=== PATIENT | female | born 1940 | race Caucasian/White ===

== ENCOUNTER → 2016-04-25 | Outpatient (CLI) | payer OTHER ==
[~2016-04-25] MED LIST: ACET-1256 PO; ACET-1311 PO; AMIO200T4 PO; AMLO5TAB4 PO; ASCA500 PO; ATOR-24 PO; CALC-354 PO; CARV12.52 PO; CHOL100010 PO; COEN1CAP17 PO; COEN1CAP37 PO; LEVO50TA PO; LOSA100T2 PO; LOSA100T65 PO; LSX40 PO; MISCTAB78 PO; MULT-506 PO; OXYC1TAB3 PO; PANT40TA PO; PILO4SOL OPR; PILOCARPINE HCL4 % OPR; POTA1080 PO; POTATAB2 PO; RABE1TAB2 PO; RABE20TA5 PO; SENN-65 PO; WARF2TAB8 PO; WARF4TAB43 PO
[2016-04-25 15:40] LABS: URINE APPEARANCE CLEAR (CLEAR); URINE BILIRUBIN NEG (NEG); URINE COLOR YELLOW; URINE EPITHELIAL CELL AUTO 20-30 /lpf (0-5); URINE NITRITE NEG (NEG); URINE SPECIFIC GRAVITY 1.016 (1.000-1.030); UROBILINOGEN NEG (NEG); ZZUR CULT IF INDIC CLEAN CATCH NO
[2016-04-25 16:05] LABS: MANUAL MICROSCOPIC REQUIRED? NO; REVIEW REQ? NO
== END | disposition home or self-care (01) ==
LOC: C.LAB1850 13:20
PROVIDERS: ATTEND Internal Medicine Nephrology
DX: N28.9 Disorder of kidney and ureter, unspecified (principal)

== ENCOUNTER → 2016-05-02 | Outpatient (CLI) | payer OTHER ==
[~2016-05-02] VITALS: Ht 167.6 cm; Wt 114.9 kg
[2016-05-02 13:07] VITALS: BP 126/80; PULSE 65; Ht 167.6 cm; Wt 114.9 kg
== END | disposition home or self-care (01) ==
LOC: C.NEUR 12:15
PROVIDERS: ATTEND Internal Medicine Pulmonary Disease
DX: G47.33 Obstructive sleep apnea (adult) (pediatric) (principal); I48.91 Unspecified atrial fibrillation

== ENCOUNTER → 2016-06-04 | Outpatient (CLI) | payer OTHER ==
[~2016-06-04] MED LIST changes: -ASCA500 PO; -CHOL100010 PO; -RABE1TAB2 PO
[2016-06-04 13:47] LABS: BLOOD UREA NITROGEN 29 mg/dl (7-18); BUN/CREATININE RATIO 19.1 (10-20); CALCIUM 9.1 mg/dl (8.5-10.1); CARBON DIOXIDE 27 mmol/L (21-32); CHLORIDE 102 mmol/L (98-107); GLUCOSE 101 mg/dl (70-99); PHOSPHORUS 3.2 mg/dl (2.5-4.9); POTASSIUM 3.6 mmol/L (3.5-5.1); SODIUM 138 mmol/L (136-145)
== END | disposition home or self-care (01) ==
LOC: C.LAB 12:02
PROVIDERS: ATTEND Internal Medicine Nephrology
DX: N28.9 Disorder of kidney and ureter, unspecified (principal); Z51.81 Encounter for therapeutic drug level monitoring; Z79.01 Long term (current) use of anticoagulants; I48.91 Unspecified atrial fibrillation

== ENCOUNTER → 2016-07-01 | Outpatient (CLI) | payer OTHER ==
[~2016-07-01] MED LIST changes: -CALC-354 PO; -PANT40TA PO
[2016-07-01 09:51] LABS: ALT/SGPT 29 U/L (12-78); BLOOD UREA NITROGEN 31 mg/dl (7-18); BUN/CREATININE RATIO 21.9 (10-20); CALCIUM 9.5 mg/dl (8.5-10.1); CARBON DIOXIDE 29 mmol/L (21-32); CHLORIDE 109 mmol/L (98-107); GLUCOSE 112 mg/dl (70-99); POTASSIUM 4.4 mmol/L (3.5-5.1); SODIUM 146 mmol/L (136-145)
[2016-07-01 09:53] LABS: ALKALINE PHOSPHATASE 57 U/L (45-117); AST/SGOT 21 U/L (15-37)
== END | disposition home or self-care (01) ==
LOC: C.LAB 07:39
PROVIDERS: ATTEND Urology
DX: C64.9 Malignant neoplasm of unspecified kidney, except renal pelvis (principal); N28.89 Other specified disorders of kidney and ureter

== ENCOUNTER → 2016-07-09 | Outpatient (CLI) | payer OTHER ==
[~2016-07-09] MED LIST changes: +OPTIRAY 320 IV PRN; -POTA1080 PO
--- NOTE | 2016-07-09 11:14 | DIAGNOSTIC IMAGING REPORT ---
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 FINDINGS: No pleural effusions. No pneumothorax. The heart is stable in size. Large hiatus hernia is again noted. The left lung is clear. Linear densities the base of the right lower lobe favor subsegmental atelectasis. IMPRESSION: 1. Large hiatus hernia, unchanged. 2. Linear densities at the base the right lower lobe which favor subsegmental atelectasis. A pneumonia could also a similar appearance. This will be better characterized on the same day abdomen and pelvis CT. Electronically signed by: Jake Bagley M.D. 07/09/2016 11:13 AM Dictated Date/Time: 07/09/2016 11:11 AM
--- NOTE | 2016-07-09 11:47 | DIAGNOSTIC IMAGING REPORT ---
CT OF THE ABDOMEN AND PELVIS WITH CONTRAST CLINICAL HISTORY: Renal cell carcinoma. COMPARISON STUDY: CT of the abdomen and pelvis January 10, 2016. TECHNIQUE: Following IV administration of 70 mL of Optiray-320, axial images of the abdomen and pelvis were obtained from the lung bases to the proximal femurs. Images were reviewed in the axial, sagittal, and coronal planes. IV contrast was administered without complication. CT DOSE: 1588.84 mGy.cm FINDINGS: Visualized portions of the lower chest demonstrate a large hiatal hernia with partially intrathoracic stomach. The liver, spleen, left adrenal gland and pancreas are unremarkable. A 1.7 cm right adrenal nodule is unchanged since prior exam. This likely reflects an adenoma. There are expected findings following right nephrectomy. There are no abnormalities within the right nephrectomy bed to suggest a local tumor recurrence. No enlarged abdominal or pelvic lymph nodes are present. There is no evidence for a bowel obstruction. There is colonic diverticulosis without evidence for acute diverticulitis. Multiple small left renal calculi measure up to 4 mm. There are no ureteral calculi. There is no hydronephrosis. There are left-sided parapelvic cyst. No suspicious osseous lesions are present. IMPRESSION: 1. No evidence of tumor recurrence following right nephrectomy. 2. Stable 1.7 cm right adrenal nodule suggestive of an adenoma. 3. Left-sided nephrolithiasis. No ureteral calculi. 4. Large hiatal hernia with partially intrathoracic stomach. Electronically signed by: Gonzalez Weems M.D. 07/09/2016 11:46 AM Dictated Date/Time: 07/09/2016 11:37 AM
== END | disposition home or self-care (01) ==
LOC: C.CTS 10:38
PROVIDERS: ATTEND Urology
DX: C64.9 Malignant neoplasm of unspecified kidney, except renal pelvis (principal); N20.0 Calculus of kidney; Z90.5 Acquired absence of kidney; K44.9 Diaphragmatic hernia without obstruction or gangrene; E27.9 Disorder of adrenal gland, unspecified; R91.8 Other nonspecific abnormal finding of lung field

== ENCOUNTER → 2016-09-03 | Outpatient (CLI) | payer OTHER ==
[~2016-09-03] MED LIST changes: +ASCO500C43 PO; +CHOL1000 PO; +LEVO75TA PO; +LOSA1TAB38 PO; +LPT10 PO; +OMEG10007 PO; -OPTIRAY 320 IV PRN; +POTA-65 PO
[2016-09-03 10:52] LABS: BLOOD UREA NITROGEN 25 mg/dl (7-18); BUN/CREATININE RATIO 15.9 (10-20); CARBON DIOXIDE 30 mmol/L (21-32); CHLORIDE 106 mmol/L (98-107); GLUCOSE 151 mg/dl (70-99); POTASSIUM 4.4 mmol/L (3.5-5.1); SODIUM 142 mmol/L (136-145)
[2016-09-03 10:54] LABS: CALCIUM 9.1 mg/dl (8.5-10.1)
[2016-09-03 11:02] LABS: PHOSPHORUS 3.5 mg/dl (2.5-4.9)
--- NOTE | 2016-09-09 13:39 | CODING QUERY MEDICAL NECESSITY ---
SUPPORTING DIAGNOSIS NEEDED Dr. Solis, A supporting diagnosis is required for the test/procedure performed on this patient in order for us to be reimbursed by the patient's insurance. Please provide a supporting diagnosis for the following test/procedure listed below next to the test name along with your signature. *If there is no additional diagnosis for this patient that would support the following test/procedure please document that below next to the test/procedure. Test(s)/Procedure(s) that require a supporting diagnosis: * ([id number]) VITAMIN D ASSAY DIAGNOSIS: DATE OF SERVICE: 09/03/16 Provider Signature: Date: Thank you Td [facility] Information Management Once completed, please kindly fax back to [phone] For questions please call [phone]
== END ==
LOC: C.LAB 09:47
PROVIDERS: ATTEND Internal Medicine Nephrology
DX: N28.9 Disorder of kidney and ureter, unspecified (principal); E55.9 Vitamin D deficiency, unspecified

== ENCOUNTER 2016-09-06 13:28 | Emergency (ER) | payer OTHER ==
[~2016-09-06] VITALS: Ht 167.6 cm; Wt 114.0 kg
[~2016-09-06 13:28] MED LIST changes: -ACET-1311 PO; -ASCO500C43 PO; -CHOL1000 PO; -COEN1CAP17 PO; -LEVO50TA PO; -LEVO75TA PO; -LOSA100T65 PO; -LOSA1TAB38 PO; -LPT10 PO; -LSX40 PO; -OMEG10007 PO; -OXYC1TAB3 PO; -PILOCARPINE HCL4 % OPR; -POTA-65 PO; -POTATAB2 PO; -SENN-65 PO
[2016-09-06 13:33] VITALS: Ht 167.6 cm; Wt 114.0 kg
--- NOTE | 2016-09-06 14:03 | EMERGENCY ROOM VISIT NOTE ---
History Report prepared by Lisa: Gary Chen Under the Supervision of: Dr. Aleta Correa D.O. First contact with patient: 13:40 Chief Complaint: RESPIRATORY PROBLEMS Stated Complaint: FLUID RETENTION, SOB Nursing Triage Summary: sent in b Dr bull after having SOB for months and had a chest xray and told she has a hiatal hernia no c/o pain History of Present Illness The patient is a 76 year old female who presents to the Emergency Room with complaints of worsening shortness of breath for several months. The patient had an X-ray three days ago with Dr. Bull for her shortness of breath. The patient was called by Dr. Bull's office and told to come to the ED. She was told she had a hiatal hernia, which was already known to her. She states she has had one for >10 years. States the sob has been going on for several months and that is part of why she is seeing Dr. Bull. The patient was also told that Dr. Bull would like a stress echocardiogram. The patient's shortness of breath is exacerbated by movement and exertion. The patient also complains of low back strain with leg stiffness and aching. The patient's back pain is not worse when she is sitting. These sx have been going on for months. The patient denies dizziness, lightheadedness, chest pain, nausea, vomiting, abdominal pain. Source of History: patient Onset: several months ago Position: other (respiratory) Quality: other (shortness of breath) Timing: worsening Modifying Factors (Worsening): exertion Associated Symptoms: + back pain, No fevers, No chills, No chest pain, No nausea, No vomiting, No abdominal pain, No numbness Review of Systems See HPI for pertinent positives & negatives. A total of 10 systems reviewed and were otherwise negative. Past Medical & Surgical Medical Problems: (1) Afib (2) GERD (gastroesophageal reflux disease) (3) HTN (hypertension) (4) Kidney stones Family History Cancer Diabetes mellitus Heart disease Hypertension Social History Smoking Status: Never Smoker Alcohol Use: none Drug Use: none Marital Status: Housing Status: lives with family Occupation Status: retired Current/Historical Medications Scheduled Amiodarone Hcl (Cordarone), 200 MG PO HS Amlodipine Besylate (Norvasc), 10 MG PO QPM Atorvastatin (Lipitor), 40 MG PO QPM Carvedilol (Coreg), 12.5 MG PO BID Coenzyme Q10 (Ubidecarenone) (Co Q 10), 100 MG PO QPM Furosemide (Furosemide), 40 MG PO DAILY Losartan Potassium (Cozaar), 100 MG PO QPM Rabeprazole Sodium (Aciphex), 20 MG PO DAILY Warfarin Sod (Jantoven), 6 MG PO 2XWK Warfarin Sodium (Warfarin Sodium), 4 MG PO 5XWK Allergies Coded Allergies: Cortisone (Unverified Allergy, Mild, RASH, 09/06/16) Adhesives (Unverified Allergy, Unknown, SKIN RASH WITH BLISTERS, 09/06/16) Flu Virus Vaccine (Unverified Allergy, Unknown, per PCP records , 09/06/16) Pork (Porcine) Protein (Unverified Allergy, Unknown, per PCP records , 09/06) Thimerosal (Unverified Allergy, Unknown, per PCP records , 09/06/16) Physical Exam Vital Signs Date Time Temp Pulse Resp B/P (MAP) Pulse Ox O2 Delivery O2 Flow Rate FiO2 09/06/16 14:52 37.1 60 18 165/66 95 09/06/16 14:18 71 09/06/16 13:33 37.1 70 18 200/88 97 Physical Exam GENERAL: alert, well appearing, well nourished, no distress, non-toxic EYE EXAM: Mild right exotropia noted. OROPHARYNX: no exudate, no erythema, lips, buccal mucosa, and tongue normal and mucous membranes are moist NECK: supple, no nuchal rigidity, no adenopathy, non-tender LUNGS: Breath sounds diminished. Normal chest wall mechanics HEART: no murmurs, S1 normal and S2 normal ABDOMEN: abdomen soft, non-tender. PELVIS: Stable. BACK: No reproducible lumbar spine pain. SKIN: no rashes and no bruising UPPER EXTREMITIES: upper extremities are grossly normal. LOWER EXTREMITIES: No pain with palpation of the hips, no swelling, good pulses. NEURO EXAM: Normal sensorium, cranial nerves II-XII grossly intact, normal speech, no gross weakness of arms, no gross weakness of legs. Gross sensation intact. Medical Decision & Procedures ED Course 1350: The patient was evaluated in room C12b. A complete history and physical exam was performed. 1415: Spoke with Dr. Bull. He scheduled everything outpatient for her and she does not need to be evaluated further in the ED. I updated the patient and she is happy to go home. Medical Decision There is no differential diagnosis. Blood pressure screening: Patient was found to have an elevated blood pressure and was referred to their primary doctor for recheck and further treatment. Medication Reconciliation: I attest that I have personally reviewed the patient' s current medication list. broadcast transmitter operator able to review phone notes to patient and conflicting instructions likely led to patient's confusion. Discussed with Dr. Bull over the phone who doesn't feel pt needs to have any additional evaluation in the ER. He has her scheduled for testing already. Pt advised of this, discussed f/u with PCP regarding back/leg pain. Pt with no current complaints and comfortable with plan to f/u as an outpt. Impression Primary Impression: Hiatal hernia Additional Impression: Chronic back pain Scribe Attestation The scribe's documentation has been prepared under my direction and personally reviewed by me in its entirety. I confirm that the note above accurately reflects all work, treatment, procedures, and medical decision making performed by me. Departure Information Dispostion Home / Self-Care Referrals Giorgio Bull D.O. (PCP) Forms HOME CARE DOCUMENTATION FORM, IMPORTANT VISIT INFORMATION, WORK / SCHOOL INSTRUCTIONS Patient Instructions My [facility] Additional Instructions Please continue with the outpatient procedures that were scheduled by Dr. Bull. Please continue your current medications as prescribed. Please discuss with your family doctor your intermittent low back pain and leg pain. If you are unable to walk, develop numbness or tingling to the legs, having difficulty with bowel movements or urination, develop fevers, increased swelling in the legs, please return to the ER immediately. If you have any worsening trouble breathing, develop chest pain or pressure with it, dizziness, nausea or vomiting, or you have any other new or concerning symptoms, please return the emergency room. Dr. Bull has scheduled you for outpatient follow- up with surgery regarding the hiatal hernia. Problem Qualifiers Additional Impression: Chronic back pain Back pain location: low back pain Back pain laterality: midline Sciatica presence: with sciatica Sciatica laterality: sciatica of left side Qualified Codes: M54.42 - Lumbago with sciatica, left side; G89.29 - Other chronic pain
[2016-09-06] MEDS ORDERED: COEN1CAP17 PO (14:45)
[2016-09-06] MEDS ORDERED: LOSA100T65 PO (14:45)
[2016-09-06] MEDS ORDERED: LSX40 PO (14:45)
[2016-09-06 14:52] VITALS: BP 165/66; PULSE 60; TEMP 37.1; O2SAT 95
[2016-11-11] MEDS ORDERED: POTATAB2 PO (11:08)
[2016-11-11] MEDS ORDERED: ACET-1311 PO (11:08)
[2016-11-11] MEDS ORDERED: SENN-65 PO (11:08)
[2016-11-11] MEDS ORDERED: PILOCARPINE HCL4 % OPR (11:08)
[2016-11-11] MEDS ORDERED: LEVO50TA PO (11:08)
[2016-11-11] MEDS ORDERED: MULT-506 PO (11:08)
[2017-03-13] MEDS ORDERED: LPT10 PO (12:08)
[2017-03-13] MEDS ORDERED: LEVO75TA PO (12:11)
[2017-03-13] MEDS ORDERED: POTA-65 PO (12:13)
[2017-03-13] MEDS ORDERED: LOSA1TAB38 PO (12:23)
[2017-03-13] MEDS ORDERED: ASCO500C43 PO (12:24)
[2017-03-13] MEDS ORDERED: CHOL1000 PO (12:25)
[2017-03-13] MEDS ORDERED: OMEG10007 PO (12:27)
== END 2016-09-06 14:53 | disposition home or self-care (01) ==
LOC: C.EDB 13:30 → C.EDC 14:53
DX: K44.9 Diaphragmatic hernia without obstruction or gangrene (principal); G89.29 Other chronic pain; M54.42 Lumbago with sciatica, left side; I48.91 Unspecified atrial fibrillation; K21.9 Gastro-esophageal reflux disease without esophagitis; I10 Essential (primary) hypertension; Z87.442 Personal history of urinary calculi; Z83.3 Family history of diabetes mellitus; Z82.49 Family history of ischemic heart disease and other diseases of the circulatory system; Z79.01 Long term (current) use of anticoagulants

== ENCOUNTER 2016-09-30 12:15 | Emergency (ER) | payer OTHER ==
[~2016-09-30] VITALS: Ht 167.6 cm; Wt 113.8 kg
[~2016-09-30 12:15] MED LIST changes: -ACET-1256 PO; +COEN1CAP17 PO; -COEN1CAP37 PO; -LOSA100T2 PO; +LOSA100T65 PO; +LSX40 PO; -MISCTAB78 PO; -MULT-506 PO; -PILO4SOL OPR
[2016-09-30 12:20] VITALS: TEMP 36.3; Ht 167.6 cm; Wt 113.8 kg
--- NOTE | 2016-09-30 14:36 | DIAGNOSTIC IMAGING REPORT ---
THORACIC SPINE CT CT DOSE: 1289.32 mGy.cm HISTORY: Pain mid thoracic back pain TECHNIQUE: Multiaxial CT images of the thoracic spine were performed and reformatted in the sagittal and coronal plane without the use of contrast. COMPARISON: None. FINDINGS: Moderate to rather significant degenerative disc change throughout. Vertebral body stature is normal. Moderate degenerative change posterior elements. No evidence for compression deformity. In centimeters] large fixed hiatal hernia. IMPRESSION: Moderate degenerative change throughout the entire thoracic region. 2. No acute process. 3. Large fixed hiatal hernia Electronically signed by: Reed Monsivais M.D. 09/30/2016 2:34 PM Dictated Date/Time: 09/30/2016 2:31 PM
[2016-09-30] MEDS ORDERED: OXYC1TAB3 PO (15:19)
[2016-09-30 16:00] VITALS: BP 139/93; PULSE 64; O2SAT 100
--- NOTE | 2016-09-30 17:36 | EMERGENCY ROOM VISIT NOTE ---
History Report prepared by Lisa: Maris Day Under the Supervision of: Dr. Santana Bassett D.O. First contact with patient: 12:34 Chief Complaint: BACK PAIN Stated Complaint: PAIN HIATAL HERNIA History of Present Illness The patient is a 76 year old female who presents to the Emergency Room with complaints of worsening thoracic back pain that started 2 days ago. She states that she has been experiencing back pain intermittently over the last 3 months but it is more severe today than it has ever been over the last few months. The pain is worse whenever she stands up or has her back up against something hard. The pain is relieved when she is lying flat or sitting on a cushioned chair that she can "push her back into." She attempted to relieve her pain with Tylenol, but it has offered her minimal relief. She states that her bowel movements have been normal. She denies chest pain, shortness of breath, nausea, vomiting, diarrhea, upper or lower back pain, groin numbness, and numbness or weakness in her legs. The patient also denies any recent falls or trauma. She also denies any recent heavy lifting or doing anything exertional with her back including twisting, turning, or bending that could have caused her pain. However , the patient adds that she has been going to physical therapy and just had her hips realigned. They have also been working on the muscles in her arms and legs. She states that they have not done anything with the muscles in her back. The patient states that she has never experienced back pain this severe in the past. She states that she has a hiatal hernia that has moved up into her chest. The patient is following with Dr. Bull - Cardiology because Dr. Daniel - Internal Medicine is leaving. She states that according to an x-ray done by Dr. Bull, the hernia is interfering with her lungs and heart so she needs to have surgery to pull it back down. The patient is following with Dr. Delatorre for surgery. The patient has a history of cervical cancer in 2004 and she had a nephrectomy in 2016 secondary to a cancerous tumor on her kidney. Source of History: patient Onset: 2 days ago Position: back (thoracic) Quality: other (thoracic back pain) Timing: worsening Modifying Factors (Worsening): other (standing, leaning up against something hard) Modifying Factors (Relieving): other (lying flat, sitting on cushioned chair ) Associated Symptoms: No chest pain, No SOB, No nausea, No vomiting, No diarrhea, No weakness, No numbness Note: burning in chest, no upper or lower back pain Review of Systems See HPI for pertinent positives & negatives. A total of 10 systems reviewed and were otherwise negative. Past Medical & Surgical Medical Problems: (1) Afib (2) GERD (gastroesophageal reflux disease) (3) Hiatal hernia (4) History of nephrectomy, unilateral (5) HTN (hypertension) (6) Kidney stones Family History Cancer Diabetes mellitus Heart disease Hypertension Social History Smoking Status: Never Smoker Alcohol Use: none Drug Use: none Marital Status: Housing Status: lives with family Occupation Status: retired Current/Historical Medications Scheduled Amiodarone Hcl (Cordarone), 200 MG PO HS Amlodipine Besylate (Norvasc), 10 MG PO QPM Atorvastatin (Lipitor), 40 MG PO QPM Carvedilol (Coreg), 12.5 MG PO BID Coenzyme Q10 (Ubidecarenone) (Co Q 10), 100 MG PO QPM Furosemide (Furosemide), 40 MG PO DAILY Losartan Potassium (Cozaar), 100 MG PO QPM Rabeprazole Sodium (Aciphex), 20 MG PO DAILY Warfarin Sod (Jantoven), 6 MG PO 2XWK Warfarin Sodium (Warfarin Sodium), 4 MG PO 5XWK Scheduled PRN Oxycodone Immediate Rel Tab (Roxicodone Ir), 5 MG PO Q6H PRN for Pain Allergies Coded Allergies: Cortisone (Unverified Allergy, Mild, RASH, 09/30/16) Adhesives (Unverified Allergy, Unknown, SKIN RASH WITH BLISTERS, 09/30/16) Flu Virus Vaccine (Unverified Allergy, Unknown, per PCP records , 09/30/16) Pork (Porcine) Protein (Unverified Allergy, Unknown, per PCP records , ) Thimerosal (Unverified Allergy, Unknown, per PCP records , 09/30/16) Physical Exam Vital Signs Date Time Temp Pulse Resp B/P (MAP) Pulse Ox O2 Delivery O2 Flow Rate FiO2 09/30/16 16:00 64 18 139/93 100 Room Air 09/30/16 14:37 54 16 126/61 94 Room Air 09/30/16 12:20 36.3 70 18 130/72 97 Room Air Physical Exam GENERAL: alert, sitting up in bed, well appearing, well nourished, no distress, non-toxic EYE EXAM: normal conjunctiva OROPHARYNX: no exudate, no erythema, lips, buccal mucosa, and tongue normal and mucous membranes are moist NECK: supple, no nuchal rigidity, no adenopathy, non-tender LUNGS: Clear to auscultation. Normal chest wall mechanics HEART: no murmurs, S1 normal and S2 normal ABDOMEN: abdomen soft, non-tender, normo-active bowel sounds, no masses, no rebound or guarding. BACK: Back is symmetrical on inspection and there is no deformity, acute reproducible tenderness in midthoracic spine along with right midthoracic paraspinal tenderness that is significantly worse on palpation, no CVA tenderness. SKIN: no rashes and no bruising UPPER EXTREMITIES: upper extremities are grossly normal. LOWER EXTREMITIES: Flexion/extension of hip, knee, ankle, and EHL 5/5 bilaterally, gross sensations intact, no pitting edema. NEURO EXAM: Normal sensorium, cranial nerves II-XII grossly intact, normal speech, no gross weakness of arms. Medical Decision & Procedures ER Provider Diagnostic Interpretation: Radiology results as stated below per my review and the radiologist's interpretation: THORACIC SPINE CT FINDINGS: Moderate to rather significant degenerative disc change throughout. Vertebral body stature is normal. Moderate degenerative change posterior elements. No evidence for compression deformity. In centimeters] large fixed hiatal hernia. IMPRESSION: Moderate degenerative change throughout the entire thoracic region. 2. No acute process. 3. Large fixed hiatal hernia Electronically signed by: Reed Monsivais M.D. 09/30/2016 2:34 PM Dictated Date/Time: 09/30/2016 2:31 PM ED Course ED COURSE: Vital signs were reviewed and showed hypertension. The patients medical record was reviewed The above diagnostic studies were performed and reviewed. ED treatments and interventions as stated above. 1236: The patient was evaluated in room A10. A complete history and physical examination was performed. 1515: Upon reevaluation, the patient is doing well. Care management is helping the patient setup a new PCP. I discussed my findings with the patient and she understands and agrees with the treatment plan. Based on the patients age, coexisting illnesses, exam and lab findings the decision to treat as an outpatient was made. The patient remained stable while under my care. The patient appeared well at the time of discharge. Medical Decision Differential diagnoses includes but is not limited to lumbar radiculopathy, muscle strain, facture, cauda equina, mass, and disc herniation. Medication Reconciliation: I attest that I have personally reviewed the patient' s current medication list. Blood pressure screening: Patient was found to have a slightly elevated blood pressure due to circumstances. I do not believe that the patient requires hypertension monitoring. Patient is a 76-year-old female who presents the ER for intermittent back pain which is worsening since this past Friday. Pain is worse on palpation movement and laying on hard surface. Patient is completely neurologically intact. No weakness in the lower extremities. CT of her thoracic spine was performed with a history of cancer and was negative. CT did show DJD. Patient declined pain meds. She is comfortable laying on soft bed. She was discharged with OxyIR to follow-up with PCP for muscle skeletal back pain. Care management per my request did set up appointment with her PCP. Discussed with Pt concerning signs and symptoms to watch out for. Pt was instructed to follow up with their PCP and discussed with the patient their option to return to the ED at anytime for persistent or worsening symptoms. The appropriate anticipatory guidance and out-patient management, including indications for return to the emergency department, were explained at length to the patient and understood. [place] Drug Monitoring Program Search Results: patient reviewed within database, see additional documentation Drug Monitoring Findings: Several old prescriptions Impression Primary Impression: Thoracic back pain Scribe Attestation The scribe's documentation has been prepared under my direction and personally reviewed by me in its entirety. I confirm that the note above accurately reflects all work, treatment, procedures, and medical decision making performed by me. Departure Information Dispostion Home / Self-Care Prescriptions Oxycodone Immediate Rel Tab (ROXICODONE IR) 5 Mg Tab 5 MG PO Q6H Y for Pain, #10 TAB Prov: Santana Bassett, 09/30/16 Referrals Jc Daniel D.O.Int.Med. (PCP) Forms HOME CARE DOCUMENTATION FORM, IMPORTANT VISIT INFORMATION Patient Instructions Back Pain - [facility], [facility] Additional Instructions Please follow up with your primary care doctor with in the next 24 hours. Any worsening of your symptoms, please return to the ED immediately. This includes numbness in your groin, weakness in your legs, inability to urinate, inability to move your bowels, chest pain, shortness of breath, or any other concerning signs or symptoms from your standpoint. You were given medications during this visit that will inhibit your ability to drive, operate machinery and work. Please do NOT drive, operate machinery or work for the next 12hrs. You were also given a prescription for a narcotic/oxy ir. While taking this medication you should also not drive, operate machinery and or work. Problem Qualifiers Primary Impression: Thoracic back pain Chronicity: acute Back pain laterality: midline Qualified Codes: M54.6 - Pain in thoracic spine
[2016-11-11] MEDS ORDERED: MULT-506 PO (11:08)
[2016-11-11] MEDS ORDERED: SENN-65 PO (11:08)
[2016-11-11] MEDS ORDERED: POTATAB2 PO (11:08)
[2016-11-11] MEDS ORDERED: LEVO50TA PO (11:08)
[2016-11-11] MEDS ORDERED: PILOCARPINE HCL4 % OPR (11:08)
[2016-11-11] MEDS ORDERED: ACET-1311 PO (11:08)
[2017-03-13] MEDS ORDERED: LPT10 PO (12:08)
[2017-03-13] MEDS ORDERED: LEVO75TA PO (12:11)
[2017-03-13] MEDS ORDERED: POTA-65 PO (12:13)
[2017-03-13] MEDS ORDERED: LOSA1TAB38 PO (12:23)
[2017-03-13] MEDS ORDERED: ASCO500C43 PO (12:24)
[2017-03-13] MEDS ORDERED: CHOL1000 PO (12:25)
[2017-03-13] MEDS ORDERED: OMEG10007 PO (12:27)
== END 2016-09-30 16:02 | disposition home or self-care (01) ==
LOC: C.EDB 12:17 → C.EDA 16:02
DX: M54.6 Pain in thoracic spine (principal); I48.91 Unspecified atrial fibrillation; I10 Essential (primary) hypertension; K21.9 Gastro-esophageal reflux disease without esophagitis; Z85.41 Personal history of malignant neoplasm of cervix uteri; Z90.5 Acquired absence of kidney; Z79.01 Long term (current) use of anticoagulants; Z79.899 Other long term (current) drug therapy

== ENCOUNTER → 2016-10-14 | Outpatient (CLI) | payer OTHER ==
[~2016-10-14] MED LIST changes: +ACET-1311 PO; +LEVO50TA PO; +MULT-506 PO; +OXYC1TAB3 PO; +PILOCARPINE HCL4 % OPR; +POTATAB2 PO; +SENN-65 PO
--- NOTE | 2016-10-14 12:41 | DIAGNOSTIC IMAGING REPORT ---
DOUBLE CONTRAST UPPER GI SERIES CLINICAL HISTORY: Hiatal hernia. COMPARISON STUDY: CT of the abdomen and pelvis July 09, 2016. FLUOROSCOPY TIME: 2 minutes. FINDINGS: 21 fluoroscopic images were obtained. There was mild esophageal dysmotility. A large sliding-type hiatal hernia was noted with partially intrathoracic stomach. The gastric cardia, fundus and proximal body of the stomach are located within the chest. Contrast passed freely into the more distal stomach. Note was made of a large diverticulum of the transverse portion of the duodenum. Gastric fold pattern is suboptimally assessed on this exam. IMPRESSION: 1. Large sliding type hiatal hernia with partially intrathoracic stomach, as described above. 2. Large diverticulum of the transverse duodenum. Electronically signed by: Gonzalez Weems M.D. 10/14/2016 12:39 PM Dictated Date/Time: 10/14/2016 12:38 PM
== END | disposition home or self-care (01) ==
LOC: C.RAD 11:13
PROVIDERS: ATTEND Surgery
DX: K44.9 Diaphragmatic hernia without obstruction or gangrene (principal); Z51.81 Encounter for therapeutic drug level monitoring; Z79.01 Long term (current) use of anticoagulants; I48.91 Unspecified atrial fibrillation

== ENCOUNTER 2016-10-19 14:39 | Emergency (ER) | payer OTHER ==
[~2016-10-19] VITALS: Ht 160 cm; Wt 113.8 kg
[~2016-10-19 14:39] MED LIST changes: -ACET-1311 PO; -LEVO50TA PO; -MULT-506 PO; -PILOCARPINE HCL4 % OPR; -POTATAB2 PO; -SENN-65 PO
[2016-10-19 14:43] VITALS: TEMP 36.5; Ht 160 cm; Wt 113.8 kg
--- NOTE | 2016-10-19 15:32 | EMERGENCY ROOM VISIT NOTE ---
History Report prepared by Lisa: Yonathan Marinelli Under the Supervision of: Dr. Scooby Art M.D. First contact with patient: 15:10 Chief Complaint: BACK PAIN Stated Complaint: BACK PAIN History of Present Illness The patient is a 76 year old female who presents to the Emergency Room with complaints of worsening middle back pain for the past 3-4 days. The patient states that she has been evaluated before for similar pain. The patient states that she did not injure her back, and she denies any rash, weakness, numbness, abdominal pain, or urinary symptoms. She states that she is taking oxycodone as needed, and she is trying to take it as little as possible. The patient states that pressure feels goof on her back, and movement makes it worse. She states that she is currently on Coumadin. Source of History: patient Onset: 3-4 days ago Position: back (middle) Timing: worsening Modifying Factors (Worsening): movement Modifying Factors (Relieving): other (pressure) Associated Symptoms: No abdominal pain, No urinary symptoms, No weakness, No numbness Review of Systems See HPI for pertinent positives & negatives. A total of 10 systems reviewed and were otherwise negative. Past Medical & Surgical Medical Problems: (1) Afib (2) GERD (gastroesophageal reflux disease) (3) Hiatal hernia (4) History of nephrectomy, unilateral (5) HTN (hypertension) (6) Kidney stones Old medical records were reviewed. Nurse's notes were reviewed and I agree with. Family History Cancer Diabetes mellitus Heart disease Hypertension Social History Smoking Status: Never Smoker Alcohol Use: none Drug Use: none Marital Status: Housing Status: lives with family Occupation Status: retired Current/Historical Medications Scheduled Amiodarone Hcl (Cordarone), 200 MG PO HS Amlodipine Besylate (Norvasc), 10 MG PO QPM Atorvastatin (Lipitor), 40 MG PO QPM Carvedilol (Coreg), 12.5 MG PO BID Coenzyme Q10 (Ubidecarenone) (Co Q 10), 100 MG PO QPM Furosemide (Furosemide), 40 MG PO DAILY Losartan Potassium (Cozaar), 100 MG PO QPM Rabeprazole Sodium (Aciphex), 20 MG PO DAILY Warfarin Sod (Jantoven), 6 MG PO 2XWK Warfarin Sodium (Warfarin Sodium), 4 MG PO 5XWK Scheduled PRN Oxycodone Immediate Rel Tab (Roxicodone Ir), 5 MG PO Q6H PRN for Pain Oxycodone Immediate Rel Tab (Roxicodone Ir), 1 TAB PO Q6 PRN for Severe Pain Allergies Coded Allergies: Cortisone (Unverified Allergy, Mild, RASH, 10/19/16) Adhesives (Unverified Allergy, Unknown, SKIN RASH WITH BLISTERS, 10/19/16) Flu Virus Vaccine (Unverified Allergy, Unknown, per PCP records , 10/19/16) Pork (Porcine) Protein (Unverified Allergy, Unknown, per PCP records , ) Thimerosal (Unverified Allergy, Unknown, per PCP records , 10/19/16) Physical Exam Vital Signs Date Time Temp Pulse Resp B/P (MAP) Pulse Ox O2 Delivery O2 Flow Rate FiO2 10/19/16 18:55 72 20 138/80 97 10/19/16 18:00 61 18 145/75 100 Room Air 10/19/16 16:15 63 16 141/70 95 Room Air 10/19/16 14:43 36.5 70 18 166/82 95 Room Air Physical Exam General: Non-ill appearing older female in no acute distress. HEENT: Normal cephalic atraumatic. Pupils are equal round and reactive to light. Extraocular movements are intact. Oropharynx is pink with moist mucous membranes. No swelling of the mouth lips or tongue. Neck: Supple with a midline trachea. No meningeal signs or stiffness, no JVD or bruits. No Stridor. Chest: Exquisitely Reproducible tenderness in the right posterior lower chest. No crepitus or rash. Clear to auscultation bilaterally. No wheezes or rhonchi. No increased work of breathing. Heart: regular rate and rhythm. Abdomen: Soft nontender, nondistended without rebound guarding or rigidity. Extremities: No cyanosis clubbing or edema. No calf tenderness or assymetry Spine/Back. Non tender to palpation. No CVA tenderness Skin: Good turgor without rashes. Neurologic exam: Cranial nerves two through 12 are intact. Motor and sensation are intact and symmetrical throughout. Medical Decision & Procedures ER Provider Diagnostic Interpretation: Radiology results as stated below per my review and radiologist interpretation: CHEST ONE VIEW PORTABLE CLINICAL HISTORY: CHEST PAIN pain COMPARISON STUDY: 07/09/2016 FINDINGS: Mild stable cardia megaly. Fixed hiatal hernia. Diaphragms smooth. Lungs are clear. IMPRESSION: Mild cardia megaly. Fixed hiatal hernia. No acute process. The above report was generated using voice recognition software. It may contain grammatical, syntax or spelling errors. Electronically signed by: Reed Monsivais M.D. 10/19/2016 3:48 PM Dictated Date/Time: 10/19/2016 3:47 PM ABD/PELVIS NO IV OR ORAL CONT CT DOSE: 1455.02 mGy.cm HISTORY: Pain eval for hematoma, mass, oestr TECHNIQUE: Multiaxial CT images of the abdomen and pelvis were performed without contrast. COMPARISON STUDY: 07/09/2016 FINDINGS: Large fixed hiatal hernia. Lung bases are clear. The right Kidney has been surgically resected. 3 mm nonobstructing mid pole left renal calcification unchanged. Left extrarenal pelvis unchanged. Nonobstructive bowel pattern. Stable right adrenal nodule measuring 1.6 cm. Residual barium from the prior contrast study read colonic diverticuli with no evidence of diverticulitis. Bladder is midline. No evidence for abscess collection or mass. IMPRESSION: 1. Large fixed lateral hernia unchanged. 2. Right adrenal nodule unchanged. 3. Scattered colonic diverticulosis. 4. No acute process post right nephrectomy 5. 3 mm nonobstructing left renal calcification unchanged The above report was generated using voice recognition software. It may contain grammatical, syntax or spelling errors. Electronically signed by: Reed Monsivais M.D. 10/19/2016 5:32 PM Dictated Date/Time: 10/19/2016 5:27 PM Laboratory Results 10/19/16 15:35 Red Blood Count 3.33, Mean Corpuscular Volume 95.8, Mean Corpuscular Hemoglobin 30.3, Mean Corpuscular Hemoglobin Concent 31.7, Mean Platelet Volume 9.8, Neutrophils (%) (Auto) 62.9, Lymphocytes (%) (Auto) 22.8, Monocytes (%) (Auto) 9.4, Eosinophils (%) (Auto) 4.2, Basophils (%) (Auto) 0.5, Neutrophils # (Auto) 4.10, Lymphocytes # (Auto) 1.48, Monocytes # (Auto) 0.61, Eosinophils # (Auto) 0.27, Basophils # (Auto) 0.03 10/19/16 15:35 Test 10/19/16 15:35 10/19/16 15:42 10/19/16 16:15 White Blood Count 6.50 K/uL (4.8-10.8) Red Blood Count 3.33 M/uL (4.2-5.4) Hemoglobin 10.1 g/dL (12.0-16.0) Hematocrit 31.9 % (37-47) Mean Corpuscular Volume 95.8 fL (80-100) Mean Corpuscular Hemoglobin 30.3 pg (25-34) Mean Corpuscular Hemoglobin Concent 31.7 g/dl (32-36) Platelet Count 241 K/uL (130-400) Mean Platelet Volume 9.8 fL (7.4-10.4) Neutrophils (%) (Auto) 62.9 % Lymphocytes (%) (Auto) 22.8 % Monocytes (%) (Auto) 9.4 % Eosinophils (%) (Auto) 4.2 % Basophils (%) (Auto) 0.5 % Neutrophils # (Auto) 4.10 K/uL (1.4-6.5) Lymphocytes # (Auto) 1.48 K/uL (1.2-3.4) Monocytes # (Auto) 0.61 K/uL (0.11-0.59) Eosinophils # (Auto) 0.27 K/uL (0-0.5) Basophils # (Auto) 0.03 K/uL (0-0.2) RDW Standard Deviation 45.1 fL (36.4-46.3) RDW Coefficient of Variation 13.0 % (11.5-14.5) Immature Granulocyte % (Auto) 0.2 % Immature Granulocyte # (Auto) 0.01 K/uL (0.00-0.02) Prothrombin Time 29.9 SECONDS (9.0-12.0) Prothromb Time International Ratio 2.7 (0.9-1.1) Activated Partial Thromboplast Time 34.1 SECONDS (21.0-31.0) Partial Thromboplastin Ratio 1.3 Anion Gap 5.0 mmol/L (3-11) Est Creatinine Clear Calc Drug Dose 30.1 ml/min Estimated GFR () 29.0 Estimated GFR (Non- 25.0 BUN/Creatinine Ratio 19.0 (10-20) Calcium Level 8.6 mg/dl (8.5-10.1) Total Bilirubin 0.2 mg/dl (0.2-1) Direct Bilirubin < 0.1 mg/dl (0-0.2) Aspartate Amino Transf (AST/SGOT) 20 U/L (15-37) Alanine Aminotransferase (ALT/SGPT) 26 U/L (12-78) Alkaline Phosphatase 68 U/L (45-117) Total Protein 6.7 gm/dl (6.4-8.2) Albumin 3.3 gm/dl (3.4-5.0) Lipase 311 U/L (73-393) Bedside D-Dimer 121 ng/mlFEU (0-450) Bedside Troponin I < 0.030 ng/ml (0-0.045) Urine Color YELLOW Urine Appearance CLOUDY (CLEAR) Urine pH 5.0 (4.5-7.5) Urine Specific [place] 1.026 (1.000-1.030) Urine Protein NEG (NEG) Urine Glucose (UA) NEG (NEG) Urine Ketones TRACE (NEG) Urine Occult Blood NEG (NEG) Urine Nitrite NEG (NEG) Urine Bilirubin NEG (NEG) Urine Urobilinogen NEG (NEG) Urine Leukocyte Esterase SMALL (NEG) Urine WBC (Auto) 5-10 /hpf (0-5) Urine RBC (Auto) 0-4 /hpf (0-4) Urine Hyaline Casts (Auto) 1-5 /lpf (0-5) Urine Epithelial Cells (Auto) >30 /lpf (0-5) Urine Bacteria (Auto) NEG (NEG) Laboratory studies as stated above per my review. ECG Indication: back/shoulder pain Rate (beats per minute): 60 Rhythm: normal sinus Findings: 1st degree AV block, RBBB, no acute ischemic change Comparison ECG Date: 06/20/15 Change: no significant change ED Course 1510: Past medical records reviewed. The patient was evaluated in room C5, and a complete history and physical examination were performed. 4: I reevaluated the patient, and she was comfortable. A CT scan was ordered. 1810: Upon reevaluation, the patient is resting comfortably. I discussed the results and treatment plan with her. She verbalized agreement of the treatment plan. The patient was discharged home. Medical Decision Differentials include, but are not limited to; musculoskeletal pain, shingles, neuropathic pain, PE, cancer complication, electrolyte or metabolic abnormality. Blood pressure Screening: Patient was found to have an elevated blood pressure and was referred to their primary doctor for recheck and further treatment. Medication Reconciliation: I attest that I have personally reviewed the patient' s current medication list. This patient comes in as described above she's having back pain in her lower posterior chest is exquisitely tender to palpation there is no rash or external signs of trauma or anything to suggest shingles at this point. She's had no fever or chills. She's been reluctant to take any pain medication. She cannot take NSAIDs because she is on Coumadin as well as a stomach problems and some renal insufficiency. I did do a d-dimer and it was within normal limits and in a low pretest probability, said he makes PE highly unlikely. Her chest x-ray does not show any acute findings to suggest a pulmonary process. She has no acute electrolyte or metabolic abnormality with exception of renal insufficiency which is slightly worse than before she tells me she's not been drinking much because she had her hiatal hernia really evaluated recently. I encouraged her to drink plenty of fluids. She also is mildly anemic at 10. She has no significant rectal bleeding lately. She does have some bleeding occasionally she gets constipated. At this point, she nothing to suggest acute GI bleed. I encouraged her to take OxyIR if needed for pain but primarily use Tylenol but do not exceed the [id number] recommended dosage. If she can use OxyIR 5 mg, 1 pill every 6 hours and was told to be careful getting up and down do not take with any other medications that could sedate her. She was encouraged to return if: increasing pain, fever or chills, worsening of symptoms , any new problems or concerns and follow up with her regular doctor this week for recheck. She is happy with the plan and discharged to home. [place] Drug Monitoring Program Search Results: patient reviewed within database, no issues identified Impression Primary Impression: Right flank pain Scribe Attestation The scribe's documentation has been prepared under my direction and personally reviewed by me in its entirety. I confirm that the note above accurately reflects all work, treatment, procedures, and medical decision making performed by me. Departure Information Dispostion Home / Self-Care Prescriptions Oxycodone Immediate Rel Tab (ROXICODONE IR) 5 Mg Tab 1 TAB PO Q6 Y for Severe Pain, #14 TAB Prov: Scooby Art M.D. 10/19/16 Referrals Jc Daniel D.O.[facility]. (PCP) Forms HOME CARE DOCUMENTATION FORM, IMPORTANT VISIT INFORMATION Patient Instructions My [facility] Additional Instructions Rest Drink plenty of fluids Use Acetaminophen/Tyelenol a maximum 2 pills every 6 hours as needed Do not take with any other meds that contain acetaminophen/Tylenol For more severe pain may use OxyIR 5 mg, 1 pill every 6 hours as needed OxyIR may make you drowsy be very careful after taking. Do not take before drinking, driving, working. Be careful getting up and down. 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 Your kidney function should be rechecked. You need ensure that he drinking plenty of fluids. Return to the ER if: Worsening of symptoms, fever or chills, any new problems or concerns.
[2016-10-19 15:46] LABS: BASO % 0.5 %; BASO ABS # 0.03 K/uL (0-0.2); COMPLETE YES; EOS % 4.2 %; HEMATOCRIT 31.9 % (37-47); IG% 0.2 %; LYMPH % 22.8 %; LYMPH ABS # 1.48 K/uL (1.2-3.4); MEAN CELL VOLUME 95.8 fL (80-100); MEAN CORPUSCULAR HEMOGLOBIN 30.3 pg (25-34); MEAN CORPUSCULAR HGB CONC 31.7 g/dl (32-36); MEAN PLATELET VOLUME 9.8 fL (7.4-10.4); MONO % 9.4 %; NEUT % 62.9 %; PLATELET COUNT 241 K/uL (130-400); RED BLOOD COUNT 3.33 M/uL (4.2-5.4)
--- NOTE | 2016-10-19 15:49 | DIAGNOSTIC IMAGING REPORT ---
CHEST ONE VIEW PORTABLE CLINICAL HISTORY: CHEST PAIN pain COMPARISON STUDY: 07/09/2016 FINDINGS: Mild stable cardia megaly. Fixed hiatal hernia. Diaphragms smooth. Lungs are clear. IMPRESSION: Mild cardia megaly. Fixed hiatal hernia. No acute process. The above report was generated using voice recognition software. It may contain grammatical, syntax or spelling errors. Electronically signed by: Reed Monsivais M.D. 10/19/2016 3:48 PM Dictated Date/Time: 10/19/2016 3:47 PM
[2016-10-19 15:54] LABS: INR 2.7 (0.9-1.1); PARTIAL THROMBOPLASTIN RATIO 1.3; PROTHROMBIN TIME (PATIENT) 29.9 SECONDS (9.0-12.0)
[2016-10-19 16:00] LABS: POINT OF CARE TROPONIN I < 0.030 ng/ml (0-0.045)
[2016-10-19 16:02] LABS: ALT/SGPT 26 U/L (12-78); BLOOD UREA NITROGEN 36 mg/dl (7-18); CALCIUM 8.6 mg/dl (8.5-10.1); CARBON DIOXIDE 29 mmol/L (21-32); CHLORIDE 108 mmol/L (98-107); GLUCOSE 106 mg/dl (70-99); POTASSIUM 4.1 mmol/L (3.5-5.1); SODIUM 142 mmol/L (136-145)
[2016-10-19 16:05] LABS: ALKALINE PHOSPHATASE 68 U/L (45-117); AST/SGOT 20 U/L (15-37)
[2016-10-19 16:31] LABS: URINE APPEARANCE CLOUDY (CLEAR); URINE BILIRUBIN NEG (NEG); URINE COLOR YELLOW; URINE EPITHELIAL CELL AUTO >30 /lpf (0-5); URINE NITRITE NEG (NEG); URINE SPECIFIC GRAVITY 1.026 (1.000-1.030); UROBILINOGEN NEG (NEG)
[2016-10-19 16:37] LABS: MANUAL MICROSCOPIC REQUIRED? NO; REVIEW REQ? NO
--- NOTE | 2016-10-19 17:33 | DIAGNOSTIC IMAGING REPORT ---
ABD/PELVIS NO IV OR ORAL CONT CT DOSE: 1455.02 mGy.cm HISTORY: Pain eval for hematoma, mass, oestr TECHNIQUE: Multiaxial CT images of the abdomen and pelvis were performed without contrast. COMPARISON STUDY: 07/09/2016 FINDINGS: Large fixed hiatal hernia. Lung bases are clear. The right Kidney has been surgically resected. 3 mm nonobstructing mid pole left renal calcification unchanged. Left extrarenal pelvis unchanged. Nonobstructive bowel pattern. Stable right adrenal nodule measuring 1.6 cm. Residual barium from the prior contrast study read colonic diverticuli with no evidence of diverticulitis. Bladder is midline. No evidence for abscess collection or mass. IMPRESSION: 1. Large fixed lateral hernia unchanged. 2. Right adrenal nodule unchanged. 3. Scattered colonic diverticulosis. 4. No acute process post right nephrectomy 5. 3 mm nonobstructing left renal calcification unchanged The above report was generated using voice recognition software. It may contain grammatical, syntax or spelling errors. Electronically signed by: Reed Monsivais M.D. 10/19/2016 5:32 PM Dictated Date/Time: 10/19/2016 5:27 PM
[2016-10-19] MEDS ORDERED: OXYC1TAB3 PO (18:19)
[2016-10-19 18:55] VITALS: BP 138/80; PULSE 72; O2SAT 97
== END 2016-10-19 18:56 | disposition home or self-care (01) ==
LOC: C.EDB 14:40 → C.EDC 18:56
DX: R10.30 Lower abdominal pain, unspecified (principal); I48.91 Unspecified atrial fibrillation; I10 Essential (primary) hypertension; K21.9 Gastro-esophageal reflux disease without esophagitis; Z87.441 Personal history of nephrotic syndrome; Z87.442 Personal history of urinary calculi; Z79.01 Long term (current) use of anticoagulants; Z79.899 Other long term (current) drug therapy; Z91.018 Allergy to other foods; Z91.09 Other allergy status, other than to drugs and biological substances; Z80.9 Family history of malignant neoplasm, unspecified; Z83.3 Family history of diabetes mellitus; Z82.49 Family history of ischemic heart disease and other diseases of the circulatory system

== ENCOUNTER → 2016-10-31 | Outpatient (CLI) | payer OTHER ==
[~2016-10-31] VITALS: Ht 160 cm; Wt 113.4 kg
[~2016-10-31] MED LIST changes: +ACET-1311 PO; +LEVO50TA PO; +MULT-506 PO; +PILOCARPINE HCL4 % OPR; +POTATAB2 PO; +SENN-65 PO
[2016-10-31 13:48] VITALS: BP 122/79; PULSE 75; Ht 160 cm; Wt 113.4 kg
== END | disposition home or self-care (01) ==
LOC: C.NEUR 13:02
PROVIDERS: ATTEND Internal Medicine Pulmonary Disease
DX: G47.33 Obstructive sleep apnea (adult) (pediatric) (principal); I48.91 Unspecified atrial fibrillation

== ENCOUNTER → 2016-11-05 | Outpatient (CLI) | payer OTHER ==
[2016-11-05 15:13] LABS: ALKALINE PHOSPHATASE 65 U/L (45-117); ALT/SGPT 25 U/L (12-78); AST/SGOT 19 U/L (15-37)
[2016-11-06 06:12] LABS: ESTIMATED AVERAGE GLUCOSE 134 mg/dl; HA1C FLAG Normal (Normal)
== END | disposition home or self-care (01) ==
LOC: C.LAB1850 12:51
PROVIDERS: ATTEND Internal Medicine
DX: Z79.899 Other long term (current) drug therapy (principal); R94.6 Abnormal results of thyroid function studies; E11.9 Type 2 diabetes mellitus without complications

== ENCOUNTER → 2016-12-02 | Outpatient (CLI) | payer OTHER ==
[~2016-12-02] MED LIST changes: -OXYC1TAB3 PO
[2016-12-02 14:03] LABS: BLOOD UREA NITROGEN 26 mg/dl (7-18); BUN/CREATININE RATIO 17.1 (10-20); CARBON DIOXIDE 29 mmol/L (21-32); CHLORIDE 107 mmol/L (98-107); GLUCOSE 101 mg/dl (70-99); POTASSIUM 4.1 mmol/L (3.5-5.1); SODIUM 142 mmol/L (136-145)
[2016-12-02 15:00] LABS: URINE APPEARANCE CLEAR (CLEAR); URINE BILIRUBIN NEG (NEG); URINE COLOR YELLOW; URINE EPITHELIAL CELL AUTO 0-5 /lpf (0-5); URINE NITRITE NEG (NEG); URINE PH 5.5 (4.5-7.5); URINE SPECIFIC GRAVITY 1.014 (1.000-1.030); UROBILINOGEN NEG (NEG); ZZUR CULT IF INDIC CLEAN CATCH NO
[2016-12-02 15:03] LABS: MANUAL MICROSCOPIC REQUIRED? NO; REVIEW REQ? NO
[2016-12-02 15:24] LABS: URINE TOTAL PROTEIN < 5.0 mg/dl (0-11.9)
== END | disposition home or self-care (01) ==
LOC: C.LAB 11:59
PROVIDERS: ATTEND Internal Medicine Nephrology
DX: E03.9 Hypothyroidism, unspecified (principal); N28.9 Disorder of kidney and ureter, unspecified; N18.3 Chronic kidney disease, stage 3 (moderate); Z51.81 Encounter for therapeutic drug level monitoring; Z79.01 Long term (current) use of anticoagulants; I48.91 Unspecified atrial fibrillation

== ENCOUNTER → 2017-02-19 | Outpatient (CLI) | payer OTHER ==
[2017-02-19 09:27] LABS: ISTAT CREATININE 1.7 mg/dl (0.6-1.3); ISTAT HEMOGLOBIN 9.2 g/dl (12.0-16.0); ISTAT IONIZED CALCIUM 1.23 mmol/l (1.12-1.32)
--- NOTE | 2017-02-19 10:26 | DIAGNOSTIC IMAGING REPORT ---
MRI OF THE ABDOMEN WITHOUT CONTRAST ADRENAL PROTOCOL CLINICAL HISTORY: Renal cell carcinoma status post right nephrectomy. Right adrenal module. TECHNIQUE: Utilizing a 1.5 Latha magnet and dedicated coil, multiplanar, multiecho imaging of the abdomen was performed. No intravenous contrast was administered given relative renal insufficiency. COMPARISON STUDY: CT of the abdomen and pelvis October 19, 2016 and December 29, 2015. FINDINGS: A 1.8 cm right adrenal nodule is unchanged since initial CT of December 29, 2015. This is suboptimally assessed on the out of phase sequence due to motion artifact. However, there is suspected signal loss on out of phase sequence which is indicative of an adenoma. No abnormalities are identified within the right nephrectomy bed on this unenhanced exam. There is a suspected 1 cm cyst within the lower pole the left kidney which is suboptimally assessed on this unenhanced exam. There are left-sided parapelvic cysts. A large hernia with partially intrathoracic stomach is noted. No abdominal lymphadenopathy or ascites is identified. IMPRESSION: 1. 1.8 cm right adrenal nodule which is unchanged in size since initial CT of December 29, 2015. Suboptimally assessed on this exam due to motion artifact but the imaging findings strongly suggest an adenoma. 2. No evidence of recurrent malignancy within the abdomen status post right nephrectomy on this unenhanced exam. Electronically signed by: Gonazlez Weems M.D. 02/19/2017 10:25 AM Dictated Date/Time: 02/19/2017 10:13 AM
== END | disposition home or self-care (01) ==
LOC: C.MRI 07:42
PROVIDERS: ATTEND Urology
DX: C64.9 Malignant neoplasm of unspecified kidney, except renal pelvis (principal); N28.89 Other specified disorders of kidney and ureter; E27.9 Disorder of adrenal gland, unspecified

== ENCOUNTER → 2017-04-04 | Outpatient (CLI) | payer OTHER ==
[~2017-04-04] MED LIST changes: +ASCO500C43 PO; -ATOR-24 PO; +CHOL1000 PO; +CRD200 PO; +CYM/30 PO; +DONE10TA12 PO; +DULO60CA44 PO; -LEVO50TA PO; +LEVO75TA PO; +LORA-741 PO; -LOSA100T65 PO; +LOSA1TAB38 PO; +LPT/40 PO; +LPT10 PO; +OMEG10007 PO; -PILOCARPINE HCL4 % OPR; +POLY335019 PO; +POTA-65 PO; -POTATAB2 PO; -SENN-65 PO
[2017-04-04 10:52] LABS: ALBUMIN 3.3 gm/dl (3.4-5.0); BLOOD UREA NITROGEN 24 mg/dl (7-18); CALCIUM 8.7 mg/dl (8.5-10.1); CARBON DIOXIDE 30 mmol/L (21-32); CREATININE 1.64 mg/dl (0.60-1.20); GLUCOSE 186 mg/dl (70-99); POTASSIUM 4.1 mmol/L (3.5-5.1); SODIUM 140 mmol/L (136-145)
--- NOTE | 2017-04-14 07:25 | CODING QUERY MEDICAL NECESSITY ---
SUPPORTING DIAGNOSIS NEEDED A supporting diagnosis is required for the test/procedure performed on this patient in order for us to be reimbursed by the patient's insurance. Please provide a supporting diagnosis for the following test/procedure listed below next to the test name along with your signature. *If there is no additional diagnosis for this patient that would support the following test/procedure please document that below next to the test/procedure. Test(s)/Procedure(s) that require a supporting diagnosis: * VITAMIN D, 25-HYDROXY DIAGNOSIS: Provider Signature: Date: Thank you Surekha Holland [facility] Once completed, please kindly fax back to [phone] For questions please call [phone]
== END | disposition home or self-care (01) ==
LOC: C.LAB1850 09:04
PROVIDERS: ATTEND Internal Medicine Nephrology
DX: I87.2 Venous insufficiency (chronic) (peripheral) (principal); E55.9 Vitamin D deficiency, unspecified

== ENCOUNTER → 2017-05-01 | Outpatient (CLI) | payer OTHER ==
[~2017-05-01] VITALS: Ht 167.6 cm; Wt 110.5 kg
[~2017-05-01] MED LIST changes: -CRD200 PO; -CYM/30 PO; -DONE10TA12 PO; -DULO60CA44 PO; -LORA-741 PO; -LPT/40 PO; -OMEG10007 PO; -POLY335019 PO
[2017-05-01 12:07] VITALS: BP 137/70; PULSE 77; Ht 167.6 cm; Wt 110.5 kg
== END | disposition home or self-care (01) ==
LOC: C.NEUR 10:58
PROVIDERS: ATTEND Internal Medicine Pulmonary Disease
DX: G47.33 Obstructive sleep apnea (adult) (pediatric) (principal); Z79.899 Other long term (current) drug therapy

== ENCOUNTER → 2017-06-20 | Outpatient (CLI) | payer OTHER ==
[~2017-06-20] MED LIST changes: -AMIO200T4 PO; +CYM/30 PO
--- NOTE | 2017-06-20 13:54 | MAMMOGRAPHY REPORT ---
BILATERAL DIGITAL SCREENING MAMMOGRAM TOMOSYNTHESIS WITH CAD: 06/20/2017 CLINICAL HISTORY: Routine screening. TECHNIQUE: Breast tomosynthesis in addition to standard 2D mammography was performed. Current study was also evaluated with a Computer Aided Detection (CAD) system. COMPARISON: Comparison is made to exams dated: 03/15/2016 mammogram, 09/13/2014 mammogram, 08/17/2013 ma mmogram, 08/11/2012 mammogram, 08/08/2011 mammogram, and 07/27/2010 mammogram - [facility]. BREAST COMPOSITION: The tissue of both breasts is almost entirely fatty. FINDINGS: No suspicious masses, calcifications, or areas of architectural distortion are noted in ei ther breast. There has been no significant interval change compared to prior exams. Bilateral benign -appearing calcifications are not significantly changed. IMPRESSION: ACR BI-RADS CATEGORY 2: BENIGN There is no mammographic evidence of malignancy. A 1 year screening mammogram is recommended. The pa tient will receive written notification of the results. Approximately 10% of breast cancers are not detected with mammography. A negative mammographic report should not delay biopsy if a clinically suggestive mass is present. Griselda Gregorio M.D. ah/:06/20/2017 12:09:25 Strike Operations Officer: Talat JONES(R)(M), [facility] letter sent: Normal 1/2 BI-RADS Code: ACR BI-RADS Category 2: Benign
== END | disposition home or self-care (01) ==
LOC: C.MAMM 11:15
PROVIDERS: ATTEND Internal Medicine Nephrology
DX: Z12.31 Encounter for screening mammogram for malignant neoplasm of breast (principal)

== ENCOUNTER → 2017-08-07 | Outpatient (CLI) | payer OTHER ==
[~2017-08-07] MED LIST changes: +POLY335019 PO
[2017-08-07 15:11] LABS: ALBUMIN 3.2 gm/dl (3.4-5.0); BLOOD UREA NITROGEN 27 mg/dl (7-18); CALCIUM 8.8 mg/dl (8.5-10.1); CARBON DIOXIDE 27 mmol/L (21-32); GLUCOSE 189 mg/dl (70-99); POTASSIUM 4.2 mmol/L (3.5-5.1); SODIUM 138 mmol/L (136-145)
[2017-08-07 15:12] LABS: PHOSPHORUS 3.6 mg/dl (2.5-4.9)
== END | disposition home or self-care (01) ==
LOC: C.LAB1850 13:02
PROVIDERS: ATTEND Internal Medicine Nephrology
DX: N18.3 Chronic kidney disease, stage 3 (moderate) (principal)

== ENCOUNTER 2019-01-19 08:10 | Inpatient (IN) ==
--- NOTE | 2019-01-05 16:02 | PAT Medication Instructions ---
Medication Instructions Date of Service January 05, 2019 Home Medications Medication Instructions Recorded atorvastatin 40 mg tablet 40 mg PO DAILY #90 tab 12/31/18 rabeprazole 20 mg tablet,delayed 20 mg PO DAILY #90 tab 12/31/18 release carvedilol 12.5 mg PO BID coQ10 (ubiquinol) 200 mg PO QPM multivitamin 1 tab PO QAM acetaminophen 325 mg capsule 325 mg PO TID PRN warfarin 2 mg tablet 6 mg PO QPM amlodipine 5 mg tablet 5 mg PO QAM levothyroxine [Synthroid] 50 mcg PO QAM losartan 50 mg PO QAM atorvastatin 40 mg tablet 40 mg PO DAILY rabeprazole 20 mg tablet,delayed release 20 mg PO DAILY ASK your prescriber and surgeon warfarin 2 mg tablet 6 mg PO QPM STOP taking 2 weeks before surgery (or as soon as possible if surgery is within 2 weeks) coQ10 (ubiquinol) 200 mg PO QPM DO NOT take the morning of surgery multivitamin 1 tab PO QAM losartan 50 mg PO QAM Take morning of surgery With a small sip of water, OTHERWISE NOTHING TO EAT OR DRINK AFTER MIDNIGHT: carvedilol 12.5 mg PO BID acetaminophen 325 mg capsule 325 mg PO TID PRN (okay to take up to 4 hours prior to surgery if needed) amlodipine 5 mg tablet 5 mg PO QAM levothyroxine [Synthroid] 50 mcg PO QAM atorvastatin 40 mg tablet 40 mg PO DAILY rabeprazole 20 mg tablet,delayed release 20 mg PO DAILY Take evening before surgery carvedilol 12.5 mg PO BID acetaminophen 325 mg capsule 325 mg PO TID PRN (if needed) Other Notes If you have any questions please call us at [phone] or [phone] or [phone] or [phone]
--- NOTE | 2019-01-06 09:40 | Anesthesiology Consultation ---
Date of Service January 06, 2019 Assessment & Plan (1) Encounter for pre-operative examination: - Patient anxious RE: SAB- discussed SAB vs. GA. Advised patient to discuss further AM DOS. - Cardiology: 11/16/18: She has permanent atrial fibrillation. No overt symptoms related to the arrhythmia. Rate control appears adequate. She is on systemic anticoagulation. [id number] MR on examination done in 2018. No significant murmur on exam today. I do not feel a need for re-evaluation currently. Reduce furosemide to 20 milligrams daily. Reduce potassium supplementation 10 milliequivalents daily. - Check coags AM DOS (warfarin instructions per surgeon/AC clinic) Chart Review Chart Review: Pending: Refer to Additional Notes / Consult section (pending preop testing (labs, EKG)) and Patient seen in Pre Admission Testing Teaching & Discussion Pre-Anesthesia Teaching/Discussion Notes: Instructed NPO after midnight before surgery,except medications with 15 cc of water. Medication instructions provided according to the PAT guidelines. History Surgery Operation Date: 01/19/19 10:40 Proposed Procedures p Left Total Hip Replacement - Amrit Muñiz MD Height/Weight Height: 5 ft 5 in Weight: 82.6 kg Allergies Allergy/AdvReac Type Severity Reaction Status Date / Time influenza virus vaccine ts Allergy Intermediate VOMITING/DI Verified 01/06/19 09:51 [id number] (36 mos,up) ARRHEA/RASH [From Fluarix] adhesive Allergy Mild SKIN RASH Verified 12/30/18 13:21 WITH BLISTERS cortisone Allergy Mild RASH Verified 12/30/18 13:21 Medications Home Medications Medication Instructions Recorded Confirmed Last Taken carvedilol 12.5 mg PO BID 02/16/18 12/30/18 02/24/18 17:30 coQ10 (ubiquinol) 200 mg PO QPM 02/16/18 12/30/18 2 Months Ago ~12/26/17 multivitamin 1 tab PO QAM 02/16/18 12/30/18 02/24/18 acetaminophen 325 mg capsule 325 mg PO TID PRN cap 11/03/18 12/30/18 Unknown warfarin 2 mg tablet 6 mg PO QPM tab 12/02/18 12/30/18 Unknown amlodipine 5 mg tablet 5 mg PO QAM 12/29/18 12/30/18 Unknown levothyroxine [Synthroid] 50 mcg PO QAM 12/30/18 12/30/18 Unknown losartan 50 mg PO QAM 12/30/18 12/30/18 Unknown atorvastatin 40 mg tablet 40 mg PO DAILY #90 tab 12/31/18 Unknown rabeprazole 20 mg tablet,delayed 20 mg PO DAILY #90 tab 12/31/18 Unknown release furosemide 20 mg PO DAILY 01/06/19 01/06/19 Unknown Past Medical History Medical History Vision loss 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 Osteopenia Insomnia Constipation Afib on warfarin Anxiety Chronic pain LLE Depression GERD (gastroesophageal reflux disease) controlled Glaucoma HTN (hypertension) Hearing deficit Hiatal hernia History of anemia History of stroke 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 Hx of cervical cancer Hx of renal cell cancer s/p surgery Hyperlipidemia Hypothyroidism Osteoarthritis Sleep apnea CPAP Exercise / Class Metabolic Activity III < 4 Walking/Shop/Light housework (uses cane/walker PRN) Past Family History Family History Family/Other Family history of diabetes mellitus Myocardial infarction Cardiac disorder Kidney stones Mother Stroke Cardiac disorder Father Cardiac disorder Stroke Aunt Cancer Past Surgical History Surgical History H/O hernia repair H/O unilateral nephrectomy RIGHT History of cardioversion History of colonoscopy History of dilatation and curettage History of tonsillectomy and adenoidectomy History of tooth extraction History of total abdominal hysterectomy and bilateral salpingo-oophorectomy Past Anesthesia History No Family Hx of Anesthesia Complications and Other *Awareness* with prior surgery 40 years ago with D&C; no issue with more recent procedures. Patient states she has been told it "takes more anesthesia to relax her." History of PONV No Hx of PONV and No Hx of Motion Sickness Social History Smoking Status: Never smoker Do You Dip or Chew Tobacco: No Hx Alcohol Use: No alcohol intake frequency: holidays/special occasions only Hx Substance Use: No substance use type: does not use Review of Systems Reflux controlled. Patient denies chest pain, shortness of breath, cough, wheezing, palpitations. Physical Exam Vital Signs VITALS BP 104/67 P 73 TEMP 98.0 SP02 97%RA RESP 16 PHYSICAL Full neck and c-spine range of motion. Full TMJ range of motion. TMD 3 finger breaths Mallampati Score 3 Dentition: intact Lungs: clear throughout to auscultation Cardiac: regular rate, irregular rhythm, I/ systolic murmur Spine: normal Carotid arteries: negative bruit Extremities: no edema Testing Echocardiogram Date: 08/13/17 LVEF 65-69%. Severe LAE. AV sclerosis. Mild to moderate MR. Mild TR. Other Testing Chest CT: 06/26/18: No acute intrathoracic abnormality identified. No adenopathy or evidence of pulmonary metastasis. Large hiatal hernia.
[2019-01-06 11:42] LABS: Basophils # (auto) 0.05 K/uL (0-0.2); Eosinophils # (auto) 0.28 K/uL (0-0.5); Eosinophils % (auto) 5.3 %; Hematocrit (blood only) 41.6 % (37-47); Hemoglobin 13.8 g/dL (12.0-16.0); Immature Granulocytes # (auto) 0.01 K/uL (0.00-0.02); Immature Granulocytes % (auto) 0.2 %; Lymphocytes # (auto) 1.52 K/uL (1.2-3.4); Mean Corpuscular Hemoglobin 32.1 pg (25-34); Mean Corpuscular Hgb Conc 33.2 g/dL (32-36); Mean Corpuscular Volume 96.7 fL (80-100); Mean Platelet Volume 11.4 fL (7.4-10.4); Monocytes # (auto) 0.47 K/uL (0.11-0.59); Neutrophils # (auto) 2.91 K/uL (1.4-6.5); Neutrophils % (auto) 55.5 %; Platelet Count 176 K/uL (130-400); RDW Coefficient of Variation 13.4 % (11.5-14.5); White Blood Count 5.24 K/uL (4.8-10.8)
[2019-01-06 11:50] LABS: BUN Creatinine Ratio 11.5 (10-20); Calcium 9.2 mg/dl (8.5-10.1); Creatinine Clr Calc Pharmacy 43.2 ml/min; Est GFR (African American) 54.1; Est GFR (Non-African American) 46.7; Potassium 4.2 mmol/L (3.5-5.1)
[2019-01-06 11:54] LABS: INR 2.9 (0.9-1.1); Partial Thromboplastin Ratio 1.2; Partial Thromboplastin Time 33.3 Seconds (21.0-31.0); Prothrombin Time 27.7 Seconds (9.0-12.0)
--- NOTE | 2019-01-15 18:07 | History and Physical Report ---
DATE OF ADMISSION: 01/19/2019 CHIEF COMPLAINT: Left hip pain. HISTORY OF PRESENT ILLNESS: The patient is a 78-year-old female referred by my partner Dr. Jaramillo for surgical treatment of her left hip. She has a several year history of increasing left hip pain and discomfort that has gotten significantly worse over the past year to the point that she is using a cane. She has used cane for about a year. She describes groin pain and thigh pain. It radiates down to her knee. No significant numbness. She does have some chronic back pain, but no radicular type symptoms. She has become more debilitated by her hip pain. She has trouble getting around or walking even a block. She has difficulty putting her shoes and socks on and difficulty living on her own. She elected to proceed with left hip surgery. PAST MEDICAL HISTORY: Significant for: 1. Atrial fibrillation, on Coumadin, followed by [facility] as well as the [facility]. 2. Home CPAP. 3. Arthritis. 4. Low back pain/sciatica. 5. Gastroesophageal reflux disease. 6. Hiatal hernia. 7. History of cervical cancer. 8. Benign kidney cancer, status post nephrectomy. PAST SURGICAL HISTORY: Previous surgeries include: 1. Herniorrhaphy. 2. Cervical/uterus removal. 3. Single kidney removal. 4. Hysterectomy. ALLERGIES: CORTISONE. CURRENT MEDICINES: Include: 1. Coumadin 6 mg a day as directed by the [facility]. 2. Levothyroxine 0.5 mg. 3. Amlodipine 5 mg a day. 4. Losartan 50 mg a day. 5. Atorvastatin 40 mg. 6. Carvedilol 12.5 mg a day. 7. Coenzyme Q once a day. 8. Rabeprazole 20 mg a day. SOCIAL HISTORY: A 78-year-old female. Lives by herself. Does not drink. No significant alcohol intake. FAMILY HISTORY: Noncontributory. REVIEW OF SYSTEM: Negative for diabetes, neurologic problems, vascular problems. She is on Coumadin. Denies any chest pain or shortness of breath. No history of DVT. She did apparently have a stroke with some visual issues, but no upper or lower extremity motor or sensory issues. PHYSICAL EXAMINATION: GENERAL: Pleasant elderly female. HEENT: Benign. NECK: Supple, no lymphadenopathy. LUNGS: Clear to auscultation. HEART: Regular rate and rhythm. ABDOMEN: Soft, nontender, nondistended. EXTREMITIES: Grossly neurovascularly intact except as follows. Examination of the left hip reveals the patient walks with use of a cane. She has got a markedly antalgic gait. Leg lengths are pretty equal. Maybe this is half a centimeter short on the left side. She has marked pain with any type of hip motion. She can internally rotate to -10. This recreates pain. Negative straight leg raise. She is neurologically intact. X-RAYS: X-rays of left hip reviewed. It shows advanced left hip DJD. She has complete loss of the joint space. She has cystic changes of the femoral head and acetabulum. X-rays of lumbar spine reveal some lumbar spondylosis, moderate in severity. She has a little bit of degenerative spondylolisthesis of L5 and S1. ASSESSMENT: A 78-year-old white female with a progressive and incapacitating left hip pain due to degenerative joint disease. She has failed conservative treatment and would like to have her left hip replaced. She has got multiple comorbidities, but is having difficulty managing life and would like to have her left hip fixed. PLAN: We are going to take her to the Operating Room and do a left total hip replacement. The risks and benefits of this procedure were explained to the patient and include but not limited to DVT, PE, , infection, neurological injury, vascular injury, bleeding problem, pain, limited range of motion, stiffness, fracture, leg length inequality, nerve palsy, dislocation, etc. The patient understands and desires to proceed. She has been managed by the [facility] as far as Coumadin. This has been stopped and she is bridged with Lovenox. We will likely start her prophylactic Lovenox postoperatively until her Coumadin is more therapeutic. We will need a stat PT and INR in the morning of surgery. We did talk to her about holding the Coumadin and taking her carvedilol the morning of surgery. We will likely get Jarrod Bravo in the [facility]iology [facility] to follow her in the hospital.
[~2019-01-19 08:10] MED LIST changes: -ACET-1311 PO; +ACETAMINOPHEN 500 MG TAB PO SCH; -AMLO5TAB4 PO; -ASCO500C43 PO; +BUPIVACAINE 0.5 % 5 MG/1 ML PF 10ML VIAL ONE; -CARV12.52 PO; +CEFAZOLIN 2000MG 2,000 MG/15 ML SYR IV SCH; -CHOL1000 PO; -COEN1CAP17 PO; -CYM/30 PO; +FAMOTIDINE 20 MG TAB PO SCH; +GABAPENTIN 300 MG CAP PO SCH; -LEVO75TA PO; -LOSA1TAB38 PO; -LPT10 PO; +LR 15ML/HR IV SCH; +LR 500ML BOLUS, THEN 15ML/HR IV SCH; +LR 60ML/HR IV SCH; -LSX40 PO; +METOCLOPRAMIDE HCL 10 MG TABLET PO SCH; -MULT-506 PO; -POLY335019 PO; -POTA-65 PO; -RABE20TA5 PO; +TRANEXAMIC ACID 1,000 MG **IV Pre-op IV SCH; -WARF2TAB8 PO; -WARF4TAB43 PO
--- NOTE | 2019-01-19 08:58 | History & Physical Bridge Note ---
Date of Service January 19, 2019 History & Physical Bridge Note I have examined the patient, reviewed the History & Physical and in the interval since the performance of the History & Physical I have noted the following changes of clinical significance: no changes noted
[2019-01-19 09:13] LABS: INR 1.2 (0.9-1.1); Partial Thromboplastin Ratio 0.9; Partial Thromboplastin Time 24.9 Seconds (21.0-31.0); Prothrombin Time 12.3 Seconds (9.0-12.0)
[2019-01-19] MEDS ORDERED: MIDAZOLAM HCL 1 MG/ML 2ML VIAL ONE (09:38)
[2019-01-19] MEDS ORDERED: KETAMINE HCL INJ 50 MG/ML 10 ML VIAL ONE (09:39)
[2019-01-19] MEDS ORDERED: GLYCOPYRROLATE 0.2 MG/ML VIAL ONE (09:41)
[2019-01-19] MEDS ORDERED: LIDOCAINE HCL 2% 2 ML VIAL/AMP(20MG/ML) INFIL ONE (09:41)
[2019-01-19] MEDS ORDERED: PROPOFOL IV EMULSION 10 MG/ML 20 ML VIAL IV ONE (09:41)
[2019-01-19] MEDS ORDERED: DEXAMETHASONE SOD INJ 4 MG/ML VIAL ONE (09:41)
[2019-01-19] MEDS ORDERED: ONDANSETRON INJ 2 MG/ML 2 ML VIAL ONE (09:41)
[2019-01-19] MEDS ORDERED: ROCURONIUM BROMIDE 10 MG/ML 5 ML VIAL ONE (10:11)
[2019-01-19] MEDS ORDERED: fentaNYL citrate 100 MCG/2 ML VIAL ONE ×2 (10:13→11:59)
[2019-01-19] MEDS ORDERED: METOCLOPRAMIDE HCL INJ 5 MG/ML 2 ML VIAL IV PRN ×2 (10:32→15:00)
[2019-01-19] MEDS ORDERED: ATROPINE SULFATE 0.1 MG/ML 10ML SYR IV PRN (10:32)
[2019-01-19] MEDS ORDERED: DEXAMETHASONE SOD INJ 4 MG/ML VIAL IV PRN (10:32)
[2019-01-19] MEDS ORDERED: PROMETHAZINE HCL 12.5 MG in SODIUM CHLORIDE 0.9% 50 ML IV PRN (10:32)
[2019-01-19] MEDS ORDERED: ONDANSETRON INJ 2 MG/ML 2 ML VIAL IV PRN (10:32)
[2019-01-19] MEDS ORDERED: ePHEDrine sulfate 50 MG/ML AMP IV PRN (10:32)
[2019-01-19] MEDS ORDERED: HYDROmorphone INJ 2 MG/ML SYR/VIAL IV PRN (10:32)
[2019-01-19] MEDS ORDERED: BUPIVACAINE/EPINEPHRINE 0.5% MPF 1:200,000 30 ML VIAL ONE (11:04)
[2019-01-19] MEDS ORDERED: BACITRACIN INJ 50,000 UNIT VIAL ONE (11:04)
[2019-01-19] MEDS ORDERED: ESMOLOL HCL INJ 10 MG/ML 10ML VIAL IV ONE (12:13)
[2019-01-19] MEDS ORDERED: LABETALOL HCL IV 5 MG/ML 20ML IV ONE (12:14)
[2019-01-19] MEDS ORDERED: NEOSTIGMINE METHYLSULFATE 5 MG/5 ML SYR ONE (12:45)
--- NOTE | 2019-01-19 13:04 | Post Operative Brief Note ---
PG Immediate Post Op with CF Date of Surgery January 19, 2019 Pre & Post Diagnosis Operation Date: 01/19/19 10:40 Pre-Op Diagnosis: Left Hip Degenerative Joint Disease Post-Op Diagnosis: Left Hip Degenerative Joint Disease I identified the patient and participated in the time-out.: Yes Procedure Operation Date: 01/19/19 10:40 Actual Procedures p Left Total Hip Replacement(Left) - Amrit Muñiz MD Surgeon Amrit Muñiz MD Modern Dancer Gretchen, PAC Estimated Blood Loss 300 Findings Consistent with Post-Op Diagnosis Fluids 1000 cc Specimens Specimen Description: A. Left Femoral Head Drains Lowe Catheter Anesthesia Type Spinal MAC Complications none Disposition Accompanied Patient To Recovery: No Disposition: Recovery Room
[2019-01-19] MEDS: fentaNYL citrate 100 MCG/2 ML VIAL IV PRN ×2 (13:36→13:59)
--- NOTE | 2019-01-19 13:41 | XRay Report ---
XR hip 1V LT w pelvis CLINICAL HISTORY: IN PACU - A/P PELVIS and LATERAL HIP COMPARISON: 07/21/2018 DISCUSSION: Total left hip arthroplasty in good position. Good contact between prosthetic and underly ing bone. Expected postoperative soft tissue change. IMPRESSION: Anatomic alignment posttotal left hip arthroplasty. The above report was generated using voice recognition software. It may contain grammatical, syntax or spelling errors. Electronically signed by: Reed Monsivais M.D. 01/19/2019 1:39 PM
--- NOTE | 2019-01-19 14:27 | Anesthesiology Progress Note ---
Date of Service January 19, 2019 Anesthesia Post Procedure Vital Signs Vital Signs: Temp Pulse Pulse Resp BP Pulse Ox 01/19/19 14:15 87 14 136/88 99 01/19/19 14:05 88 15 133/91 97 01/19/19 13:55 88 15 136/82 97 01/19/19 13:45 88 15 145/86 H 97 01/19/19 13:35 97 H 21 148/90 H 100 01/19/19 13:25 96 H 21 152/87 H 100 01/19/19 13:15 94 H 18 143/98 H 100 01/19/19 13:06 36.4 C L 87 16 139/96 99 01/19/19 09:04 36.5 C 78 20 161/92 H 100 Pain Intensity Left Hip: Pain Intensity: 3 Transfer of Care Handoff Completed per policy Notes Mental Status: alert / awake / arousable and participated in evaluation Patient Amnestic to Procedure: Yes Nausea / Vomiting: adequately controlled Pain: adequately controlled Airway Patency, RR, SpO2: stable & adequate BP & HR: stable & adequate Hydration State: stable & adequate Anesthetic Complications: no major complications apparent
[2019-01-19] MEDS: SODIUM CHLORIDE 0.9% 1000ML 1,000 ML IV SCH ×2 (14:40→23:24)
[2019-01-19] MEDS ORDERED: ALUMINUM/MAGNESIUM SUSP 30 ML UDC PO PRN (15:00)
[2019-01-19] MEDS ORDERED: HYDROmorphone INJ 0.5 MG/0.5 ML SYR IV PRN (15:00)
[2019-01-19] MEDS ORDERED: bisacodyL 10 MG SUPP PR PRN (15:00)
[2019-01-19] MEDS ORDERED: NALOXONE HCL 0.4 MG/1 ML VIAL/CARP IV PRN (15:00)
[2019-01-19] MEDS ORDERED: WARFARIN SOD 10 MG TAB PO ONE (16:00)
[2019-01-19] MEDS: ACETAMINOPHEN 500 MG TAB PO SCH ×2 (16:17→20:59)
[2019-01-19] MEDS: KETOROLAC TROMETHAMINE 15 MG/ML VIAL IV SCH ×2 (16:17→20:59)
--- NOTE | 2019-01-19 16:47 | Operative Report ---
DATE OF OPERATION: 01/19/2019 SURGEON: Amrit Muñiz MD. PRODUCTION TEAM MANAGER: GEORGETTE Murguia PREOPERATIVE DIAGNOSIS: Left hip degenerative joint disease. POSTOPERATIVE DIAGNOSIS: Left hip degenerative joint disease. PROCEDURE PERFORMED: Left uncemented ceramic on highly cross-linked polyethylene total hip arthroplasty. COMPLICATIONS: None. ESTIMATED BLOOD LOSS: 300 mL FLUID REPLACEMENT: 1000 mL crystalloid fluid replacement. ANESTHESIA: General. DRAINS: None. SPECIMENS: Left femoral head sent for pathology. OPERATIVE INDICATIONS: The patient is a 78-year-old fairly active independent elderly female who has had a several year history of increasing left hip pain and discomfort that has gotten markedly incapacitating to the point where she was having trouble living by herself. X-ray showed advanced left hip DJD. She is medically optimized and elected to proceed with total hip arthroplasty. OPERATIVE FINDINGS: Operative findings revealed advanced left hip DJD. She had extensive grade 4 [id number] disease of the femoral head and acetabulum. She had a large anterior acetabular osteophyte and osteophytes circumferentially around the femoral head. Moderate size joint effusion. Fairly stiff hip. OPERATIVE IMPLANTS: Operative implants consisted of: 1. Biomet G7 size 48 mm acetabular shell. 2. Two 6.5 cancellous acetabular screws, 1 of 35 mm length and 1 of 20 mm in length. 3. An apex hole eliminator. 4. Highly cross-linked polyethylene liner with a 48 mm outer diameter and 32 mm inner diameter with a tyler placed inferior and posterior. 5. DePuy Corail size 11 KLA femoral stem. 6. +5/32 mm ceramic articular ball. OPERATIVE PROCEDURE: The patient was taken to the operating room, identified and placed on the operating table in supine position. All contact areas were appropriately padded. IV antibiotics were provided by anesthesia team. The patient refused a spinal anesthetic. A general anesthetic was implemented. Lowe catheter was placed in sterile fashion. The patient was then placed in the right lateral decubitus position. An axillary roll was placed. Stlberg hip positioner was used for positioning. All contact areas were meticulously padded. The left hip and leg were then prepped and draped in usual sterile fashion. Posterolateral approach to the left hip was then performed through a curvilinear incision centered over the greater trochanter. Sharp dissection was carried through the subcutaneous tissues down to the level of the IT band and gluteal fascia. The IT band and gluteal fascia was incised longitudinally in line with skin incision. The underlying greater trochanteric bursa was excised. The piriformis and external rotators were taken off the posterior aspect of the hip joint capsule. Great care was taken throughout the procedure to protect the sciatic nerve at all times. Posterior capsulotomy was then performed leaving a large flap for later repair. Hip was internally rotated and dislocated. Femoral neck osteotomy cut was made with the final cut about 8 mm above the lesser trochanter. Femoral head was removed and sent for pathology. Femur was retracted. Attention then drawn to the acetabulum. The acetabular labrum was excised. The pulvinar fat was excised. Sequential reaming of the acetabulum was then performed with a size 43 and progressing up to 47. A 48 mm Biomet G7 acetabular shell was then placed in about 40 degrees lateral opening and 20-25 degrees of anteversion. I did place a little more anteversion than usual hoping to decrease her liklihood of dislocating post-op. Large anterior osteophyte was removed. Two 6.5 cancellous acetabular screws were used to secure the implant. A trial liner was placed. Attention was then drawn to the femur. The proximal femur was entered with [place] cutter followed by canal finder. Broaching was then begun beginning with a size 8 and progressing up to an 11. We got excellent fit at 11. I then trialed the hip. The +5 articular ball seemed to recreate soft tissue tension appropriately, the leg lengths appropriately was fully stable in full extension and external rotation, flexion to 90 degrees, internal rotation to 50+ degrees. I did elect to place a tyler inferior and posterior to maximize her stability and flexion. We elected to place these implants. All trial implants were removed. An apex hole eliminator was placed. Highly cross-linked polyethylene liner with the tyler placed inferior and posterior was then placed. A DePuy Corail size 11 KLA femoral stem was then placed. A +5/32 mm ceramic articular ball was placed. Hip was located and once again found to be stable. Attention was then drawn towards closing. The wound was irrigated with copious amounts of pulsatile lavage solution. I did inject locally with 60 mL of 0.5% Marcaine with epinephrine. The posterior capsule and external rotators were then repaired through drill holes in the posterior trochanter with #2 Ti-Cron suture. The IT band and gluteal fascia were then closed with #1 PDS suture in a running fashion. Subcutaneous tissues were then closed with 2 layers, the deep layer #1 Vicryl suture and subcutaneous tissue with 2-0 Dexon suture in a buried interrupted fashion. The skin was then closed with skin brandi. Leg was then cleaned, dried and a sterile dressing with Xeroform, 4 x 4's, ABD pad and foam tape was applied. The patient was then brought out of general anesthesia and transferred to the recovery room in stable condition. The patient tolerated the procedure well with no complication. All needle and sponge counts were correct at the end of the operation. I attest to the content of the Intraoperative Record and any orders documented therein. Any exceptions are noted below. YUKOD
[2019-01-19] MEDS: ASCORBIC ACID 500 MG TAB PO SCH (17:47)
[2019-01-19] MEDS: FERROUS GLUCONATE 324 MG TAB PO SCH (17:48)
[2019-01-19] MEDS ORDERED: TRANEXAMIC ACID 1,000 MG in 0.9 % SODIUM CHLORIDE 100 ML IV SCH (19:00)
[2019-01-19] MEDS: carvediloL 12.5 MG TAB PO SCH (19:59)
[2019-01-19] MEDS: CEFAZOLIN 2000MG 2,000 MG/15 ML SYR IV SCH (19:59)
[2019-01-19] MEDS: SENNA 8.6 MG TAB PO SCH (20:00)
[2019-01-19] MEDS: DOCUSATE SODIUM 100 MG CAP PO SCH (20:00)
[2019-01-19] MEDS: ONDANSETRON INJ 2 MG/ML 2 ML VIAL IV PRN (20:59)
[2019-01-19] MEDS ORDERED: NON-FORMULARY MEDICATION (Coq10 (Ubiquinol) 200 MG) PO SCH (21:00)
[2019-01-19] MEDS: TRAMADOL HCL 50 MG TABLET PO PRN (23:24)
[2019-01-20 05:03] LABS: Basophils # (auto) 0.01 K/uL (0-0.2); Basophils % (auto) 0.1 %; Hematocrit (blood only) 34.1 % (37-47); Immature Granulocytes # (auto) 0.02 K/uL (0.00-0.02); Immature Granulocytes % (auto) 0.2 %; Lymphocytes # (auto) 0.69 K/uL (1.2-3.4); Lymphocytes % (auto) 6.8 %; Mean Corpuscular Hemoglobin 33.3 pg (25-34); Mean Corpuscular Hgb Conc 35.2 g/dL (32-36); Mean Corpuscular Volume 94.7 fL (80-100); Mean Platelet Volume 10.8 fL (7.4-10.4); Monocytes # (auto) 0.95 K/uL (0.11-0.59); Monocytes % (auto) 9.4 %; Neutrophils # (auto) 8.49 K/uL (1.4-6.5); Neutrophils % (auto) 83.5 %; Platelet Count 151 K/uL (130-400); RDW Coefficient of Variation 13.2 % (11.5-14.5); RDW Standard Deviation 45.8 fL (36.4-46.3); White Blood Count 10.16 K/uL (4.8-10.8)
[2019-01-20] MEDS: KETOROLAC TROMETHAMINE 15 MG/ML VIAL IV SCH ×2 (05:04→09:15)
[2019-01-20] MEDS: CEFAZOLIN 2000MG 2,000 MG/15 ML SYR IV SCH (05:04)
[2019-01-20] MEDS: ACETAMINOPHEN 500 MG TAB PO SCH ×3 (05:04→20:32)
[2019-01-20] MEDS: LEVOTHYROXINE SODIUM 50 MCG TABLET PO SCH (05:05)
[2019-01-20 05:11] LABS: INR 1.2 (0.9-1.1); Prothrombin Time 12.1 Seconds (9.0-12.0)
[2019-01-20 05:28] LABS: BUN Creatinine Ratio 20.3 (10-20); Calcium 8.3 mg/dl (8.5-10.1); Creatinine Clr Calc Pharmacy 42.4 ml/min; Est GFR (Non-African American) 45.7; Potassium 4.5 mmol/L (3.5-5.1)
[2019-01-20] MEDS ORDERED: LR 500ML BOLUS, THEN 15ML/HR IV SCH (06:00)
[2019-01-20] MEDS: ATORVASTATIN 40 MG TAB PO SCH (08:29)
[2019-01-20] MEDS: FUROSEMIDE 20 MG TAB PO SCH (08:29)
[2019-01-20] MEDS: MULTIVITAMIN TAB PO SCH (08:29)
[2019-01-20] MEDS: ASCORBIC ACID 500 MG TAB PO SCH ×2 (08:29→18:01)
[2019-01-20] MEDS: carvediloL 12.5 MG TAB PO SCH ×2 (08:29→20:32)
[2019-01-20] MEDS: PANTOprazole 40 MG TAB PO SCH (08:29)
[2019-01-20] MEDS: AMLODIPINE BESYLATE 5 MG TAB PO SCH (08:29)
[2019-01-20] MEDS: DOCUSATE SODIUM 100 MG CAP PO SCH ×2 (08:29→20:32)
[2019-01-20] MEDS: FERROUS GLUCONATE 324 MG TAB PO SCH ×2 (08:29→18:01)
[2019-01-20] MEDS: LOSARTAN POTASSIUM 50 MG TAB PO SCH (08:29)
[2019-01-20] MEDS ORDERED: MULTIVITAMIN TAB PO SCH (09:00)
[2019-01-20] MEDS ORDERED: ENOXAPARIN INJ 30 MG/0.3 ML SYR SQ SCH (14:00)
--- NOTE | 2019-01-20 14:32 | Progress Note ---
DATE: 01/20/2019 SUBJECTIVE: A 78-year-old white female postop day 1 from a left hip replacement. She is doing well. She has been getting around with some assistance reasonably well. She denies any significant pain. No chest pain or shortness of breath. Not feeling dizzy or lightheaded. OBJECTIVE: VITAL SIGNS: Temperature 36.5. Vital signs stable. GENERAL: Shows a pleasant elderly female. Sitting up at her bedside chair, looks pretty comfortable. LUNGS: Clear to auscultation. HEART: Regular rate and rhythm. ABDOMEN: Soft, nontender, nondistended. EXTREMITIES: Grossly neurovascularly intact except as follows: Examination of the left hip and leg reveals the dressing to be clean, dry and intact. Thigh is soft and supple. She can dorsiflex and plantarflex her foot appropriately. Leg lengths are equal. LABORATORY DATA: Hemoglobin 12.0. Hematocrit 34.1. Electrolytes are stable. ASSESSMENT: A 78-year-old white female postoperative day 1 from a left hip replacement, doing quite well. Pain is controlled. She is neurologically intact. Hip is located. PLAN: 1. DVT prophylaxis including thigh-high TEDs, SCDs, and back on her Coumadin. We will start her on Lovenox prophylactically 24 hours from surgery at a low dose until her Coumadin is more therapeutic. She does not want to be giving herself injections at home. 2. PT/OT. Weight bear as tolerated. Left total hip protocol. 3. Pain control, doing pretty well with current pain regimen. 4. Disposition: She is still hoping to go home. She has family around to assist. We will see how she does in therapy. I recommended that she go to rehab or prison facility, but she is pretty against this. We will see how therapy goes over the next 24 hours.
[2019-01-20] MEDS ORDERED: WARFARIN SOD 10 MG TAB PO ONE (16:00)
[2019-01-20] MEDS: SENNA 8.6 MG TAB PO SCH (20:32)
[2019-01-20] MEDS: ONDANSETRON INJ 2 MG/ML 2 ML VIAL IV PRN (23:24)
[2019-01-20] MEDS: TRAMADOL HCL 50 MG TABLET PO PRN (23:24)
[2019-01-21 05:40] LABS: Prothrombin Time 19.3 Seconds (9.0-12.0)
[2019-01-21] MEDS: TRAMADOL HCL 50 MG TABLET PO PRN ×3 (06:04→19:26)
[2019-01-21] MEDS: LEVOTHYROXINE SODIUM 50 MCG TABLET PO SCH (06:04)
[2019-01-21] MEDS: ACETAMINOPHEN 500 MG TAB PO SCH ×3 (06:04→19:25)
--- NOTE | 2019-01-21 07:40 | Progress Note ---
DATE: 01/21/2019 SUBJECTIVE: A 78-year-old white female postop day 2 from a left hip replacement. Had a pretty rough night sleeping-martines with some pain. No chest pain or shortness of breath. Not having pain when just lying in bed, but whenever she gets up and moves, has had more discomfort. Denies any chest pain or shortness of breath. OBJECTIVE: VITAL SIGNS: Temperature 37.0. Vital signs stable. GENERAL: Reveals a pleasant, elderly female. She is lying in bed, looks pretty comfortable this morning. EXTREMITIES: Examination of the left hip and leg reveals the leg lengths are equal. Dressing is clean, dry and intact. Thigh is soft and supple. She is neurologically intact. LABORATORIES: Her INR is 2.0 this morning. ASSESSMENT: A 78-year-old white female postoperative day 2 from a left hip replacement, doing pretty well. A little bit more pain and a pretty restless night. PLAN: 1. DVT prophylaxis including thigh-high TEDs, SCDs, and she is back on her Coumadin. Her INR is therapeutic. We will stop her Lovenox and keep her on the Coumadin. 2. PT/OT. Weight bear as tolerated. Left total hip protocol. 3. Pain control, doing okay with current pain regimen. 4. Disposition: She is still hoping to go home. We will see how she does in therapy today. We will hold on her discharge until likely tomorrow.
[2019-01-21] MEDS: FERROUS GLUCONATE 324 MG TAB PO SCH ×2 (08:21→17:25)
[2019-01-21] MEDS: carvediloL 12.5 MG TAB PO SCH ×2 (08:22→19:26)
[2019-01-21] MEDS: AMLODIPINE BESYLATE 5 MG TAB PO SCH (08:22)
[2019-01-21] MEDS: MULTIVITAMIN TAB PO SCH (08:22)
[2019-01-21] MEDS: MAGNESIUM HYDROXIDE SUSP 30 ML UDC PO PRN ×2 (08:22→19:25)
[2019-01-21] MEDS: PANTOprazole 40 MG TAB PO SCH (08:22)
[2019-01-21] MEDS: ATORVASTATIN 40 MG TAB PO SCH (08:22)
[2019-01-21] MEDS: FUROSEMIDE 20 MG TAB PO SCH (08:22)
[2019-01-21] MEDS: DOCUSATE SODIUM 100 MG CAP PO SCH ×2 (08:22→19:26)
[2019-01-21] MEDS: LOSARTAN POTASSIUM 50 MG TAB PO SCH (08:22)
[2019-01-21] MEDS: ASCORBIC ACID 500 MG TAB PO SCH ×2 (08:22→17:25)
[2019-01-21] MEDS ORDERED: WARFARIN SOD 6 MG TAB PO SCH (16:00)
[2019-01-21] MEDS: SENNA 8.6 MG TAB PO SCH (19:25)
[2019-01-22] MEDS: TRAMADOL HCL 50 MG TABLET PO PRN ×3 (01:38→13:30)
[2019-01-22] MEDS: ACETAMINOPHEN 500 MG TAB PO SCH ×2 (05:15→13:30)
[2019-01-22] MEDS: LEVOTHYROXINE SODIUM 50 MCG TABLET PO SCH (05:15)
[2019-01-22 05:29] LABS: INR 2.6 (0.9-1.1); Prothrombin Time 25.1 Seconds (9.0-12.0)
[2019-01-22] MEDS: ASCORBIC ACID 500 MG TAB PO SCH (07:25)
[2019-01-22] MEDS: FERROUS GLUCONATE 324 MG TAB PO SCH (07:25)
[2019-01-22] MEDS: PANTOprazole 40 MG TAB PO SCH (08:19)
[2019-01-22] MEDS: AMLODIPINE BESYLATE 5 MG TAB PO SCH (08:19)
[2019-01-22] MEDS: LOSARTAN POTASSIUM 50 MG TAB PO SCH (08:19)
[2019-01-22] MEDS: carvediloL 12.5 MG TAB PO SCH (08:20)
[2019-01-22] MEDS: FUROSEMIDE 20 MG TAB PO SCH (08:20)
[2019-01-22] MEDS: DOCUSATE SODIUM 100 MG CAP PO SCH (08:20)
[2019-01-22] MEDS: MULTIVITAMIN TAB PO SCH (08:20)
[2019-01-22] MEDS: ATORVASTATIN 40 MG TAB PO SCH (08:20)
--- NOTE | 2019-01-22 08:53 | Progress Note ---
DATE: 01/22/2019 SUBJECTIVE: A 78-year-old white female postop day 3 from a left total hip replacement. She is doing quite a bit better this morning. Pain is controlled. Feels like she is ready to go home. No chest pain or shortness of breath. She is really refusing to go to a rehab or a retirement facility. OBJECTIVE: VITAL SIGNS: Temperature 37.0. Vital signs stable. GENERAL: Reveals a pleasant elderly female. She is lying in bed, looks pretty comfortable. EXTREMITIES: Examination of the left hip reveals the leg lengths are equal. Dressing is clean, dry and intact. Thigh is soft and supple. She is neurologically intact. ASSESSMENT: A 78-year-old female postoperative day 3 from a left hip replacement, doing pretty well. Her pain is improved. She is adamant about going home with some home health and family assistance. PLAN: 1. DVT prophylaxis including thigh-high TEDs, SCDs, and she is back on her Coumadin. She is on her regular dose of 6 mg a day. 2. PT/OT. Weight bear as tolerated. Left total hip protocol. 3. Pain control, doing pretty well with current pain regimen. 4. Disposition: She is adamant about going home. I really felt she was best to go to rehab or retirement facility, but she says she has got a plenty of family and is adamant about going home. We will see how she does in therapy and hopefully discharge later today.
--- NOTE | 2019-01-27 11:33 | Discharge Summary ---
ADMITTING PHYSICIAN AND SURGEON: Amrit Muñiz MD. ADMITTING DIAGNOSIS: Left hip degenerative joint disease. SURGERY PERFORMED: Left total hip arthroplasty. SECONDARY DIAGNOSES: Atrial fibrillation, sleep apnea, arthritis, low back pain, sciatica, gastroesophageal reflux disease, hiatal hernia, history of cervical cancer and benign kidney cancer. : Noncontributory. HISTORY AND PHYSICAL EXAMINATION: Well documented in the patient's chart. HOSPITAL COURSE: The patient was admitted on 01/19/2019, underwent total hip arthroplasty, tolerated the procedure well. She was transferred to the PACU postoperatively and later to the orthopedic floor for further care. She was given Ancef for antibiotic prophylaxis, DON stockings, SCDs, Coumadin and Lovenox for DVT prophylaxis. Her INR was monitored daily and Coumadin dosed accordingly. Hemoglobin, hematocrit and vital signs were monitored during her hospital stay and remained stable. She did not require any blood transfusions. There were no complications. By postoperative day 3, she was tolerating a regular diet, pain was controlled with oral pain medicine. She was participating in physical therapy. Postop day 3, she was discharged home, set up with home health services. She was given printed discharge instructions as well as new prescriptions for extra-strength Tylenol and tramadol. Continue her home medicines including warfarin, continue physical therapy, weightbearing as tolerated, DON stockings, total hip precautions. Follow up in approximately 2 weeks postop or sooner if there are any problems or concerns.
== END 2019-01-22 15:30 | disposition home health service (06) | DRG 470 ==
LOC: ASU 08:10 → 3E 13:11